=== PATIENT | female | born 1955 | race Caucasian/White ===

== ENCOUNTER 2018-04-27 16:18 | Emergency (ER) | payer OTHER ==
[~2018-04-27] VITALS: Ht 170.1 cm; Wt 64.9 kg
[~2018-04-27 16:18] MED LIST: ADVAIR 250/501 EA INH; ALPRAZOLAM0.5 M3 PO; ASPIRIN ADULT L81 M1 PO; ATORVASTATIN CA10 M1 PO; LIPITOR10 MG PO; LISINOPRIL10 M1 PO; NEURONTIN300 MG PO; OMEPRAZOLE D/R20 MG PO; PRAVACHOL20 MG PO; ZOLOFT100 MG PO
[2018-04-27] MEDS ORDERED: Peridex 473 ML473 ML PO (16:27)
[2018-04-27] MEDS ORDERED: ZOFRAN4 MG PO (16:27)
[2018-04-27] MEDS ORDERED: CLINDAMYCIN150 MG PO (16:27)
[2018-04-27] MEDS ORDERED: BREO ELLIPTA 11 EACH INH (16:38)
== END 2018-04-27 16:53 | disposition home or self-care (01) ==
LOC: ED 16:18
DX: R22.0 Localized swelling, mass and lump, head (principal); R09.02 Hypoxemia; I10 Essential (primary) hypertension; J44.9 Chronic obstructive pulmonary disease, unspecified; K21.9 Gastro-esophageal reflux disease without esophagitis; F17.200 Nicotine dependence, unspecified, uncomplicated; Z79.82 Long term (current) use of aspirin; Z79.899 Other long term (current) drug therapy

== ENCOUNTER 2019-05-21 12:04 | Inpatient (IN) | payer MEDICARE ==
[~2019-05-21] VITALS: Ht 165.1 cm; Wt 48.1 kg
--- NOTE | ~2019-05-21 | PR ---
[place], [place] PROGRESS NOTE NAME: SAMEERA MATTHEWS UNIT #: [id number] ROOM: 317 DOCTOR: SANDRA PATRICIO MD BIRTHDATE: [birth year] DOS: 05/27/2019 INTERVAL NOTE CHIEF COMPLAINT: "I at least got the obituary written." SUMMARY OF THE VISIT: The patient was interviewed as she was sitting finishing her breakfast. She voiced an improvement in her overall symptoms. DICTATION ENDS HERE SANDRA PATRICIO MD CM:PNTRANS [id number] SANDRA PATRICIO MD 05/27/19 1946 interface
--- NOTE | ~2019-05-21 | EKG ---
[place], [place] ELECTROCARDIOGRAM REPORT NAME: SAMEERA MATTHEWS UNIT #: [id number] ROOM: 310 DOCTOR: STEVE DRAFT REPORT BIRTHDATE: [birth year] [facility] Test Date: 2019-05-25 Test Time: 12:06:46 Pat Name: SAMEERA MATTHEWS Department: Room: 310 1 Gender: F Desktop Support Engineer: : [id number] Requested By: GRETA BROWN Order Number: [id number] Reading MD: Ryan Mcclellan MD Measurements Intervals [place] Rate: 101 P: 84 CO: 153 QRS: 51 QRSD: 65 T: 46 QT: 342 QTc: 444 Interpretive Statements Sinus tachycardia Probable left atrial enlargement Electronically Signed On 05-26-2019 5:45:40 PDT by Ryan Mcclellan MD CM:EKGRPT:ELECTROCARDIOGRAM REPORT [id number] GRETA BROWN EPIPHANY DRAFT REPORT GRETA BROWN
--- NOTE | ~2019-05-21 | PR ---
[place], [place] PROGRESS NOTE NAME: SAMEERA MATTHEWS UNIT #: [id number] ROOM: 310 DOCTOR: SANDRA PATRICIO MD BIRTHDATE: [birth year] DOS: 05/26/2019 CHIEF COMPLAINT: "Oh, I am having these anxiety attacks, but I have to push through and get this done." SUMMARY OF THE VISIT: The patient was interviewed as she was sitting at the edge of the dining area. She was working on riding and obituary for her . She was visibly upset as I approached her and reports that she is trying her best to deal with the grief and still having episodic panic attacks throughout the day. They come on oftentimes without warning and mimic a heart attack with chest pain, diaphoresis, shortness of breath and a sense of impending doom. On a positive note, she is at least sleeping with the current medication regimen and her appetite has remained good. MENTAL STATUS: She is alert and oriented. Mood does seem to be depressed, but improving. Affect is anxiety ridden and very anxious. There is no hypomania or mike. There is no gross psychosis. Memory is intact. PLAN: I will go ahead and start her on Ativan 0.5 mg t.i.d. in an effort to get ahead of the anxiety. I have instructed her to refuse medicine if she is feeling that is making her too somnolent. Otherwise, I have discussed with the treatment team ways to aid her in her activities, especially as she prepares the obituary for her and finalizes any last minute plans. Will engage in individual and louise milieu activity, returning to the least restrictive environment when psychiatrically stable. SANDRA PATRICIO MD CM:PNTRANS [phone] SANDRA PATRICIO MD 05/26/19 1055 interface
--- NOTE | ~2019-05-21 | DS ---
[place], [place] DISCHARGE SUMMARY NAME: [id number] UNIT #: [id number] ROOM: 317 DOCTOR: SANDRA PATRICIO MD BIRTHDATE: [birth year] DOS: 06/02/2019 CHIEF COMPLAINT: "I can't believe that he . I can't believe that it happened." HISTORY OF PRESENT ILLNESS: This is a 63-year-old white female who was just discharged from the [facility] following a short stay due to an attempted suicide. The patient has had increased stressors of late, her own failing health being one of them and her 's failing health. When the patient was discharged, she was discharged so that she can be at her side, who was in the active process of dying. He subsequently on the day of her discharge with her at his side. Following this, she had sustained a panic attack and was brought into the Emergency Room by family members and readmitted because of worsening depression and anxiety. SUMMARY OF HOSPITAL COURSE: The patient was admitted to the unit where she was initially maintained on Remeron and BuSpar. BuSpar was increased from 5 mg t.i.d. to 10 mg t.i.d. in an effort to decrease anxiety and improve respiratory drive. Ultimately, the Remeron was increased from 15 to 30 mg at bedtime. Additionally, she was given a prescription an order for Ativan 0.5 mg t.i.d. to deal with the overriding anxiety surrounding her 's . Much of the work on the unit focused on helping her cope with his and again plan of strategy for returning home to the house. Family members were working to make it so that she would not have to go up multiple levels and instead were working to make a bathroom on the main floor, so she would not have to go upstairs. Once all this was done, the patient voiced a willingness and a readiness to return home. She clearly voiced positive plans for the future and denied having any suicidal thoughts. She was discharged home at that time. MENTAL STATUS AT DISCHARGE: She is alert and oriented to person, place, and time. Mood is euthymic. Affect is appropriate. There is no mike, hypomania or psychosis. There are no suicidal thoughts, homicidal thoughts, or self-injurious thoughts. Short, intermediate, and long-term memory is intact. FINAL DIAGNOSES: Major depression, recurrent, severe, anxiety disorder, not otherwise specified. PLAN: Her prescriptions were e-scribed to [facility] except for Neurontin and Ativan, which were printed, signed and sent with her. She will have followup in the community. At the time of discharge, she was medically and psychiatrically stable. [place], [place] DISCHARGE SUMMARY NAME: SAMEERA MATTHEWS UNIT #: [id number] ROOM: 317 DOCTOR: SANDRA PATRICIO MD BIRTHDATE: [birth year] SANDRA PATRICIO MD CM:DISCHARG SANDRA PATRICIO MD 06/02/1936 interface
--- NOTE | ~2019-05-21 | PR ---
[place], [place] PROGRESS NOTE NAME: SAMEERA MATTHEWS UNIT #: [id number] ROOM: 310 DOCTOR: SANDRA PATRICIO MD BIRTHDATE: [birth year] DOS: 05/27/2019 CHIEF COMPLAINT: "I at least finished my 's obituary." SUMMARY OF THE VISIT: The patient was interviewed as she was finishing her breakfast at the end of the dining room. She engaged readily in conversation, reporting that she is done with her 's obituary and is feeling day by day a little better. We talked at length about her plans when she returns home and is planning to return back to her home that she and her share together. Family is making some arrangements to make it more easy for her to have access and working on installing a first floor bathroom. She voices that the panic attacks have lessened and that the Ativan during the day has made great improvement without sedation or somnolence. MENTAL STATUS: She is alert and oriented to person, place, and time. Mood is gradually trending towards euthymia. Affect is much more appropriate. There is no hypomania, mike or psychosis. There are no suicidal thoughts, homicidal thoughts, or self-injurious thoughts and memory is intact. PLAN: I will continue her current psychotropic regimen, continue to engage in individual and louise milieu activity, returning to the least restrictive environment when psychiatrically stable. SANDRA PATRICIO MD CM:PNTRANS [phone] SANDRA PATRICIO MD 05/27/19 1017 interface
--- NOTE | ~2019-05-21 | PR ---
[place], [place] PROGRESS NOTE NAME: SAMEERA MATTHEWS UNIT #: [id number] ROOM: 310 DOCTOR: CLAIRE FAY CNP BIRTHDATE: [birth year] DOS: 05/24/2019 CHIEF COMPLAINT: "I didn't have a good night." SUMMARY OF THE VISIT: The patient was interviewed as she lie in her bed with her eyes closed. She was sleeping whenever I entered the room; however, she did arouse whenever I called her name. The patient is somewhat lethargic this morning; however, staff reports that she did have an Ativan at 3:00 a.m., reports that the patient was medicated due to having waking up having a panic attack. Today is her and her 's anniversary. Her has recently . Staff did report that yesterday, the patient had been more interactive with staff and peers. Her appetite is fair. She slept sporadically throughout the night last night. The patient also found out that her bank account has been hacked, so this seems to be causing increased anxiety. MENTAL STATUS EXAMINATION: The patient is alert and oriented. She was pleasant and cooperative. No overt mike or hypomania noted. No delusions or paranoia noted. No psychotic symptoms noted. No auditory or visual hallucinations noted. The patient's mood is depressed. Her affect is congruent with mood. PLAN: We will increase the patient's Remeron to 30 mg at bedtime to help combat depressive symptoms. We will monitor the patient for effectiveness and monitor for side effects. Encourage the patient to engage in individual and louise milieu activity. Continue fall and safety precautions. Plan is to return the patient to the least restrictive environment when she is considered psychiatrically stable. Claire Fay CNP CM:PNTRANS 1 8 CLAIRE FAY CNP 05/24/19918 interface
--- NOTE | ~2019-05-21 | PR ---
[place], [place] PROGRESS NOTE NAME: SAMEERA MATTHEWS UNIT #: [id number] ROOM: 317 DOCTOR: SANDRA PATRICIO MD BIRTHDATE: [birth year] DOS: 06/01/2019 INVERVAL NOTE CHIEF COMPLAINT: "I am coming to private tutor with things day by day. "I think I am doing better, thank heavens for you people and my family." SUMMARY OF THE VISIT: The patient was interviewed as she was sitting at a table with another female peer. She stopped and engaged in conversation with me reporting that she did sleep better. She is eating well and overall is voicing positive plans for the future. She does feel that the antidepressants and the antianxiety medicines have been beneficial. She notes no residual side effects from them. MENTAL STATUS: She is alert and oriented. Mood does seem to be more euthymic. Affect is more appropriate. There is no mike, hypomania or psychosis. Short term, intermediate, and long-term memory are intact. PLAN: I will renew her straight Ativan 0.5 mg t.i.d. Continue to engage in individual and louise milieu activity, returning to the least restrictive environment when psychiatrically stable. SANDRA PATRICIO MD CM:PNTRANS 8 [phone] SANDRA PATRICIO MD 06/01/192223 interface
--- NOTE | ~2019-05-21 | PR ---
[place], [place] PROGRESS NOTE NAME: SAMEERA MATTHEWS UNIT #: [id number] ROOM: 317 DOCTOR: SANDRA PATRICIO MD BIRTHDATE: [birth year] DOS: 05/31/2019 CHIEF COMPLAINT: "I read my 's obituary. I could have gone on and on. He was the love of my life." SUMMARY OF THE VISIT: The patient was interviewed as she was sitting in the end of the dining area. She engaged readily in conversation. Tears weld up in her eyes as she talked about her 's obituary. She continues to grieve. She notes sleep was somewhat disturbed last night, but overall she notes an improvement. MENTAL STATUS: She is alert and oriented. Mood does seem to be still depressed, still anxious, overtones. No mike, hypomania or gross psychosis is noted. She denies side effects from the medicines themselves. PLAN: Continue to support and monitor. Continue to engage in individual and louise milieu activity. Returning to the least restrictive environment when psychiatrically stable. SANDRA PATRICIO MD CM:PNTRANS 8 [phone] SANDRA PATRICIO MD 05/31/192036 interface
--- NOTE | ~2019-05-21 | PR ---
[place], [place] PROGRESS NOTE NAME: SAMEERA MATTHEWS UNIT #: [id number] ROOM: 310 DOCTOR: VERONIKA DAMON DO BIRTHDATE: [birth year] DOS: 05/23/2019 PSYCHIATRIC PROGRESS NOTE CHIEF COMPLAINT: "Good morning, still some panic attacks throughout the night." SUMMARY OF VISIT: The patient is interviewed while sitting in the dining olivia eating breakfast. She admits that she still continues to have some panic attacks that are usually situational in the night. She then becomes tearful during the interview when she mentioned that she found out that her , Jg, who recently, his body was still at the hospital. She states that she had no idea that he was not at the home yet. When she found that out, she said it bothered her a lot and at that time she needed Ativan medication and additional emotional support from staff. She states she eventually was able to calm down. She mentioned that she does not want to live at her house anymore because her had built it and it has been too sad for her to go back into it, also very large for her to maintain. She would prefer a small place for herself and her plants. In addition, she states that tomorrow is her and her 's anniversary and so she knows it will be extremely hard for her that day and she wanted us to be aware that she can have hard time wanting to come out of bed and not have a blanket over her head while processing that it is her anniversary. Per nursing staff, the patient slept about 6 hours last night. She is tearful throughout the day; however, she is calm and appropriate with staff members. MENTAL STATUS EXAMINATION: She is alert and oriented x 3. Mood is still very depressed with some anxious overtones. She is tearful. There is no hypomania or mike. There are no auditory or visual hallucinations. No delusions are present. No paranoia. Memory for the most part is intact. PLAN: Increase BuSpar 10 mg t.i.d. Made staff aware that Sunday will be her anniversary and that she will have a hard time processing this: We will continue to monitor and support, engage in individual and louise milieu activity, returning to the least restrictive environment when psychiatrically stable. Veronika Damon DO [place], [place] PROGRESS NOTE NAME: SAMEERA MATTHEWS UNIT #: [id number] ROOM: 310 DOCTOR: VERONIKA DAMON DO BIRTHDATE: [birth year] SANDRA PATRICIO MD CM:PNPALMER [phone] VERONIKA DAMON DO 05/24/19 0125 interface
--- NOTE | ~2019-05-21 | WRIGHTHP ---
[place], [place] PATIENT HISTORY AND PHYSICAL EXAM NAME: SAMEERA MATTHEWS UNIT #: [id number] ROOM: 310 DOCTOR: SANDRA PATRICIO MD BIRTHDATE: [birth year] DOS: 05/22/2019 CHIEF COMPLAINT: "I can't believe that he . I can't believe that happened." HISTORY OF PRESENT ILLNESS: This is a 63-year-old white female who was just discharged from the [facility] following a short stay due to an attempted suicide. The patient has had increased stressors of late her own failing medical health as well as her 's failing health. The patient was discharged so that she could attend to him while she was at [facility] and he subsequently passed within 24 hours of her being discharged. She felt overwhelmed, was crying hysterically and sustained a significant panic attacks, necessitating a trip to the Emergency Room and the subsequent readmission. The patient endorses multiple neurovegetative symptoms including poor sleep and appetite, crying spells, and inability to cope. She wishes she were , but states that she does not have active suicidal thoughts, but this could change at any time. The patient is readmitted now for crisis stabilization, to engage in individual and louise milieu activity and to re-stabilize on medication. PAST MEDICAL HISTORY: Remarkable for acute on chronic respiratory failure, COPD, hypertension, gastritis, GERD, SIRS, nicotine dependence and alcohol abuse. SOCIAL HISTORY: Remarkable for both alcohol use and tobacco use. No illicit drugs, but the patient has a lengthy history of benzodiazepine use. ALLERGIES: SHE DOES LIST, ALLERGIES TO ACETAMINOPHEN AND OXYCODONE. STRENGTHS: Good verbal skills, ambulatory. WEAKNESSES: Chronic mental health issues, poor coping skills. MENTAL STATUS: Upon admission, the patient is alert and oriented. Mood is overwhelmingly depressed and she cried readily during the entire interview, the patient endorses multiple neurovegetative symptoms including poor sleep and appetite, anhedonia, hopeless, helpless feelings, crying spells, and inability to cope. She also endorses significant overriding anxiety with episodic panic attacks. There is no hypomania or mike. There are no auditory or visual hallucinations. No delusions are present. No paranoia is present. Memory is intact. DIAGNOSES: Major depression, recurrent, severe panic disorder, generalized anxiety disorder. PLAN: I have maintained her on Remeron 15 mg at bedtime. I will increase her BuSpar from 5 mg t.i.d. to 10 mg b.i.d. She will have p.r.n. Ativan available should she require it, but nothing straight. We will engage in individual and louise milieu activity. We will also consult pastoral services to offer spiritual assistance. We will return to the least restrictive environment when psychiatrically stable. [place], [place] PATIENT HISTORY AND PHYSICAL EXAM NAME: SAMEERA MATTHEWS UNIT #: [id number] ROOM: 310 DOCTOR: SANDRA PATRICIO MD BIRTHDATE: [birth year] SANDRA PATRICIO MD CM:HISPHYS:PATIENT HISTORY AND PHYSICAL EXAMINATION 7 7 SANDRA PATRICIO MD 05/22/19917 interface
--- NOTE | ~2019-05-21 | PR ---
[place], [place] PROGRESS NOTE NAME: SAMEERA MATTHEWS UNIT #: [id number] ROOM: 317 DOCTOR: SANDRA PATRICIO MD BIRTHDATE: [birth year] DOS: 05/29/2019 CHIEF COMPLAINT: "Oh, I don't think I'll be ready for discharge, Sunday. I am just so overwhelmed." SUMMARY OF THE VISIT: The patient was interviewed as she was sitting at the end of the dining area with oxygen on, eating her breakfast. She engaged readily in conversation. She did report to me that after thinking about it, she feels like she would frey herself if she left tomorrow, feeling that there was way too many lose ends that need to be tied up and she is overwhelmed, anxious and depressed by it. In general, her sleep has improved, but it is still disturbed. She is tolerating the current medication regimen well without noticeable side effects. MENTAL STATUS: She is alert and oriented to person, place and time. Mood does still seem to be depressed with anxious overtones. There is no hypomania, mike or psychosis. Short term, intermediate, and long-term memory are intact. PLAN: I will renew her BuSpar, maintain her current psychotropic regimen, engage in individual and louise milieu activity, returning to the least restrictive environment when psychiatrically stable. SANDRA PATRICIO MD CM:PNTRANS [phone] SANDRA PATRICIO MD 05/29/19 1024 interface
[~2019-05-21 12:04] MED LIST changes: +BREO ELLIPTA 11 EACH INH; +BUSPAR5 MG PO; +CIPROFLOXACIN500 M4 PO; +CLINDAMYCIN150 MG PO; +DALI500T PO; +Ipratropium Brom3 ML INH; +NORVASC5 MG PO; +PROAIR HFA8.5 GM INH; +Peridex 473 ML473 ML PO; +REMERON15 M2 PO; +TEARS NATURALE,15 ML OPH; +TRAMADOL HCL50 MG PO; +VITAMIN D5000 UNI1 PO; +ZOFRAN4 MG PO
--- NOTE | 2019-05-21 13:33 | NUR ---
SAMEERA MATTHEWS a 63 year old F admitted via wheel chair from the EMERGENCY ROOM as a voluntary admission. Arrived on unit at 1333 . ALLERGIES: OXYCODONE, ACETAMINOPHEN Vital signs are: 97.5-101-18 172/70. The client signed the following forms with stated understanding: Authorization For The Release of Medical Information, Clothing List, Consent to Voluntary Admission and Hospitalization, Consent and Release Forms/Receipt of Rights, Acknowledgement of Advance Directive Information, Behavioral Health Consent Form, and Informed Consent of Medications. Admitted under the services of Dr. SHENG GREENWOOD,[facility]. A search was conducted and hazardous articles were removed. Client was oriented to the unit. SUPA DEMARCO PT ALERT TO PERSON, PLACE AND TIME. PT REPORTS HER EARLY THIS MORNING AND SHE IS FEELNG ANXIOUS AND DEPRESSED. PT DENIES ANY SUICIDAL THOUGHTS. SUICIDE RISK SCORE IS 16, DR PATRICIO NOTIFIED AND ORDERS RECEIVED TO CONTINUE Q15 MIN SAFETY CHECKS. NO HALLUCINATIONS OR DELUSIONS NOTED. PT AMBULATORY WITH 1 STAFF ASSIST. PT CONTINENT OF BOWEL AND BLADDE.R
--- NOTE | 2019-05-21 14:00 | NUR ---
CALL PLACED TO RESIDENT #[address] ON NEW PT. NEW ORDER TO PLACE CONSULT UNDER DR CHARLES. UPDATE DDR ON VS AND RECEIVED A NEW ORDER TO GIVE NORVASC 5MG NOW DUE TO INCREASED BP. PT STATED SHE HASNT TAKEN ANY MEDICATIONS SINCE DISCHARGE. WILL CONTINUE TO MONITOR VS.
[2019-05-21 14:08] VITALS: BP 172/70
[2019-05-21 14:09] VITALS: BP 172/70
--- NOTE | 2019-05-21 14:58 | NUR ---
Please refer to psychosocial assessment from pt's [facility] admission dated 05/17/19. Pt discharged on 05/20/19 to be at her 's side who was gravely ill at [facility]. Pt's did early this AM. When meeting with pt in ER prior to pt's return to [facility], pt stated that she went to stay at her aunt's home after leaving [facility]. Pt stated that when she woke up later this AM at her aunt's, pt had a panic attack and was having difficulty breathing. She decided that she needed to return to [facility] for further treatment. Pt was tearful throughout conversation with this inspector automatic typewriter.
--- NOTE | 2019-05-21 15:34 | NUR ---
PM GROUP/LEISURE INTERESTS PT ATTENDED AND PARTICIPATED IN AFTERNOON GROUP THERAPY BY READING THE NEWSPAPER AND SOCIALIZING WITH PEERS. PT HAD JUST BEEN READMITTED TO THE UNIT AND GOALS WILL BE ESTABLISHED IN THE AM
--- NOTE | 2019-05-21 15:36 | NUR ---
[facility] DOCTOR ON UNIT TO ASSESS PT.
--- NOTE | 2019-05-21 16:38 | NUR ---
SPOKE WITH SYLVIA ALVAREZ, ADVISED THAT PT IS REQUESTING BREATHING TX.
[2019-05-21 19:49] VITALS: BP 136/75
--- NOTE | 2019-05-22 02:46 | NUR ---
P-DEPRESSED MOOD. I-ASSESS ORIENTATION, MOOD, AND BEHAVIOR. ASSESS FOR SI/HI AND HALLUCINATIONS. PROVIDE 1:1 WITH EMOTIONAL SUPPORT NEEDED. ENCOURAGE MEDICATION COMPLIANCE AND EDUCATE. MONITOR SLEEP. R-PATIENT ALERT AND ORIENTED X4, MOOD DEPRESSED. PT CALM, INTERACTIVE, AND COOPERATIVE. PT STATED DURING 1:1 THAT SHE CONTINUES TO FEEL SAD BUT DENIES ANY SI OR HI, PATIENT PROVIDED WITH EMOTIONAL SUPPORT AND INFORMED THAT IF THOUGHTS ARISE TO HARM SELF OR OTHERS TO NOTIFY STAFF, PT CONTRACTED FOR SAFETY. NO HALLUCINATIONS, PARANOIA, OR DELUSIONS NOTED. NO PHYSICAL COMPLAINTS VOICED. PATIENT MEDICATION COMPLIANT WITHOUT DIFFICULTY AFTER REVIEW. PT CURRENTLY LAYING DOWN WITH EYES CLOSED, RESPIRATIONS EASY AND REGULAR ON 3L NC ORDERED, NO SIGNS OR SYMPTOMS OF DISTRESS NOTED. P-CONTINUE TO MONITOR MOOD AND BEHAVIORS. PROVIDE 1:1 FOR VENTILATION OF FEELINGS WITH EMOTIONAL SUPPORT NEEDED. ENCOURAGE MEDICATION COMPLIANCE AND EDUCATE. MAINTAIN Q 15 MIN CHECKS.
--- NOTE | 2019-05-22 05:46 | NUR ---
24 HOUR CHART CHECK COMPLETED.
--- NOTE | 2019-05-22 05:54 | NUR ---
PATIENT OBSERVED ON Q 15 MIN CHECKS TO HAVE SLEPT APPROX 6 HOURS WITH X1 BRIEF AWAKENING TO USE THE RESTROOM WITH ASSISTANCE OF STAFF, NO SIGNS OR SYMPTOMS OF DISTRESS NOTED.
[2019-05-22 07:19] LABS: ALBUMIN 3.1 gm/dl (3.1-4.5); BUN 10 mg/dl (7-24); CHLORIDE 97 mmol/L (98-107); CHOLESTEROL 151 mg/dL (<200); CREATININE 0.54 mg/dL (0.55-1.02); POTASSIUM 3.6 mmol/L (3.5-5.1); SGOT/AST 12 IU/L (3-35); SGPT/ALT 19 U/L (12-78); SODIUM 136 mmol/L (136-145); TRIGLYCERIDES 58 mg/dl (<150); VLDL CHOLESTEROL 12 mg/dL (6-40)
[2019-05-22 07:29] LABS: ALKALINE PHOSPHATASE 72 U/L (45-117); HDL CHOLESTEROL 56 mg/dl (40-60); LDL CHOLESTEROL 83 mg/dL (9-159); THYROID STIM HORMONE (HS) 0.504 uIU/ml (0.358-4.75); TOTAL PROTEIN 6.5 gm/dL (6.4-8.2)
[2019-05-22 07:53] LABS: VITAMIN D, 25-HYDROXY 19.8 ng/mL (30-100)
[2019-05-22 08:00] VITALS: BP 167/80
--- NOTE | 2019-05-22 08:15 | NUR ---
Treatment Plan meeting with Dr. Leone, RN, AT, SW and Business Support Professional. Plan for discharge next week. Pt. will return Home at this point.
--- NOTE | 2019-05-22 08:36 | NUR ---
Patient resting quietly with no c/o discomfort. Respirations easy and regular. Vital signs stable. No overt distress. SHERIF OROZCO
--- NOTE | 2019-05-22 11:41 | NUR ---
AM GROUP/LESSONS FROM A TREE PT WAS LATE TO GROUP BUT DID PARTICIPATE IN DISCUSSION AND BEGAN WORKING ON A TREE. PT EXPRESSED NO SUICIDAL IDEATIONS WHILE IN GROUP
--- NOTE | 2019-05-22 14:33 | NUR ---
DR. PERKINS MADE AWARE THAT PT STATES SHE DOES NOT HAVE ACETAMINOPHEN ALLERGY, PT STATES SHE TOOK PERCOCET IN THE PAST AND HAS HAD AN ADVERSE REACTION TO PERCOCET. PT REQUESTING TYLENOL FOR HEADACHE. DR. PERKINS STATES TO PLACE ORDER FOR ACETAMINOPHEN 650MG PO Q6H PRN FOR PAIN.
--- NOTE | 2019-05-22 14:36 | NUR ---
PT REQUESTING MEDICATION TO DECREASE ANXIETY. PT IN MEETING WITH BOX TURNER. BOX TURNER MADE THIS NURSE AWARE THAT PT IS VERY UPSET, TEARFUL. PRN ATIVAN 1MG GIVE AT THIS TIME AT PT REQUEST D/T ALL NONPHARMACOLOGICAL RELAXATION TECHNIQUES INEFFECTIVE.
--- NOTE | 2019-05-22 15:36 | NUR ---
PM GROUP/TREES CONTINUED PT WAS LATE TO GROUP SHE WAS IN A MEETING WITH SW. PT HAD ABOUT A HALF HOUR AND CONTINUED WORK ON HER TREE DRAWING. PT EXPRESSED NO SUICIDAL IDEATIONS DURING GROUP
--- NOTE | 2019-05-22 16:12 | NUR ---
PT STATES ANXIETY AND HEADACHE HAVE DECREASED VERY MUCH. PT REMAINS EPISODICALLY TEARFUL. DENIES SI/HI. PT IN DINING AREA WITH PEERS COLORING, INTERACTING APPROPRIATELY, LAUGHING AT TIMES. WILL CONTINUE TO MONITOR PT AND PROVIDE EMOTIONAL SUPPORT NEEDED.
--- NOTE | 2019-05-22 16:15 | NUR ---
Individual time spent with pt this afternoon. Allowed pt to express her grief and provided support. Assisted pt in making call to [facility]. Pt spoke to Sandeep Costello and discussed plans for pt's . Support provided to pt during this phone conversation. Problem solved with pt about payment of her current bills. The plan is for her cousin Nico to bring pt's bills to [facility]. This lyric writer will then allow pt to use the phone in this lyric writer's office to make payments.
[2019-05-22 20:19] VITALS: BP 115/65
--- NOTE | 2019-05-23 01:54 | NUR ---
P-DEPRESSED MOOD. I-ASSESS ORIENTATION, MOOD, AND BEHAVIOR. ASSESS FOR SI/HI AND HALLUCINATIONS. PROVIDE 1:1 WITH EMOTIONAL SUPPORT NEEDED. ENCOURAGE MEDICATION COMPLIANCE AND EDUCATE. MONITOR SLEEP. R-PATIENT ALERT AND ORIENTED X4, MOOD DEPRESSED. PT CALM, INTERACTIVE, AND COOPERATIVE. DURING 1:1 PT DENIED ANY SI OR HI AND CONTRACTED FOR SAFETY. PT ALSO DENIED ANY HALLUCINATIONS, NO NOTED RESPONDING TO INTERNAL STIMULI. NO PARANOIA OR DELUSIONS NOTED. NO PHYSICAL COMPLAINTS VOICED. PATIENT MEDICATION COMPLIANT WITHOUT DIFFICULTY AFTER REVIEW. PT CURRENTLY LAYING DOWN WITH EYES CLOSED, RESPIRATIONS EASY AND REGULAR ON 3L NC ORDERED, NO SIGNS OR SYMPTOMS OF DISTRESS NOTED. P-CONTINUE TO MONITOR MOOD AND BEHAVIORS. PROVIDE 1:1 FOR VENTILATION OF FEELINGS WITH EMOTIONAL SUPPORT NEEDED. ENCOURAGE MEDICATION COMPLIANCE AND EDUCATE. MAINTAIN Q 15 MIN CHECKS.
--- NOTE | 2019-05-23 04:46 | NUR ---
24 HOUR CHART CHECK COMPLETED.
--- NOTE | 2019-05-23 06:10 | NUR ---
PATIENT OBSERVED ON Q 15 MIN CHECKS TO HAVE SLEPT APPROX 6 HOURS WITH NO AWAKENINGS OR SIGNS AND SYMPTOMS OF DISTRESS NOTED.
[2019-05-23 07:41] VITALS: BP 140/62
--- NOTE | 2019-05-23 08:00 | NUR ---
Patient resting quietly with no c/o discomfort. Respirations easy and regular. Vital signs stable. No overt distress. SHERIF OROZCO
--- NOTE | 2019-05-23 08:00 | NUR ---
Treatment Plan meeting with Dr. Leone, RN, AT, SW and Veterinary Microbiologist. Plan for discharge next week. Working with patient on discharge Planning.
--- NOTE | 2019-05-23 09:19 | NUR ---
Received a call from pt's brother Que. Que voiced concerns about pt returning home alone. Que provided reasons for his concerns. Explained to Que that this typewriter aligner has not yet discussed discharge plan with pt, as yesterday was spent in planning memorial for pt's and allowing pt to express grief. Reassured Que that discharge options will be discussed with pt.
--- NOTE | 2019-05-23 09:35 | NUR ---
PT C/O VERY BAD "NERVES" THIS AM. STATES IT IS ONLY GOING TO GET WORSE THE DAY PROGRESSES BECAUSE HER WEDDING ANNIVERSARY IS TOMORROW. PT IS REQUESTING MEDICATION FOR ANXIOUSNESS. PT STATES THAT COLORING, 1:1, AND SOME LOW STIMULATION HAS NOT HELPED, SHE STATES "I JUST NEED SOMETHING TO HELP ME CALM DOWN AND FOCUS". ATIVAN 1MG PO GIVEN AT THIS TIME PER PRN ORDER
--- NOTE | 2019-05-23 10:45 | NUR ---
PT INTERACTING WITH PEERS AT THIS TIME, STATES "I FEEL MUCH BETTER". PT HAS NO FURTHER TEARFUL EPISODES, PRN APPEARS EFFECTIVE AT THIS TIME
--- NOTE | 2019-05-23 11:47 | NUR ---
PHYSICAL THERAPY Physical therapy screen complete, U. Patient reports no need for skilled PT services at this time. Discharge PT order. Thank you. Coleen Renee,PT,DPT.
--- NOTE | 2019-05-23 11:48 | NUR ---
AM GROUP PT ATTENDED AND PARTICIPATED IN MORNING GROUP THERAPY BY SOCIALIZING AND WORKING WITH COLORED PENCILS. PT EXPRESSED NO SUICIDAL IDEATIONS DURING GROUP. PT HAD ONE TEARFUL EPISODE WHEN REMINISCING ABOUT HER .
--- NOTE | 2019-05-23 12:29 | NUR ---
Occupational therapy orders received and chart review this date, 05/23/19. Patient educated on occcupational therapy, and patiet stated she does not need therapy. She said she is continuing to get stronger, and does not need therapy services. Patient to be discharged at this time from OT services. Thank you for the referral. Tamra Sheikh, OTR/L
--- NOTE | 2019-05-23 14:13 | NUR ---
Pt's cousin brought pt's bills needing paid to pt today. Brought pt to this remote mortgage underwriter's office so that pt could pay her bills by phone.
--- NOTE | 2019-05-23 15:38 | NUR ---
PM GROUP/MANICURES AND MUSIC PT WAS UNABLE TO ATTEND AFTERNOON GROUP THERAPY DUE TO A MEETING WITH BINTA
[2019-05-23 20:14] VITALS: BP 125/85
--- NOTE | 2019-05-24 | NUR ---
PT REQUESTED BREATHING TREATMENT AT THIS TIME. AUDIBLE WHEEZES NOTED, PT CALM WITH SOB NOTED. RESPIRATORY CALLED AT THIS TIME
--- NOTE | 2019-05-24 00:12 | NUR ---
P:DEPRESSION, ANXIETY, SOB FROM COPD, INEFFECTIVE COPING I: ENCOURAGED 1:1 CONVERSATION, TALKED WITH PT ABOUT SUPPORT NETWORKS AND IMPORTANCE OF SOCIALIZING AT HERE AND HOME UPON DISCHARGE. ENCOURAGE MEDICATION EDUCATION, SPOKE WITH PT ABOUT BREATHING TECHNIQUES DUE TO ANXIETY AND COPD R: PT RECEPTIVE, TALKED ABOUT HOW LIFE CHANGES AND HOW SHE ENJOYS GARDENING, OUTSIDE, SPOKE OF MEMORIES OF LATE WITH PICINICS, LAKES, WALKS AROUND DOMINIQUE, PT APPEARED CALM WITH NO ANXIETY NOTED AT THE TIME OF CONVERSATION. STATED SHE HAS DECREASED IN BREATHING AEROSOLS. PT LAUGHINGWITH ROOM MATE STATES SHE IS 1 OF THE 3 MUSKETEERS WITH OTHER PEERS. P: CONTINUE TO HELP WITH COPING SKILLS, ENCOURAGE INTERACTIONS, MEDICATION EDUCATION, CONTINUE WITH 15 MIN CHECKS AND CONTRACT FOR SAFETY
--- NOTE | 2019-05-24 02:50 | NUR ---
PT NOTED TO BE SOBBING IN HER ROOM, MILIEU ALERTED NURSE THAT PT REQUESTED ATIVAN FOR ANXIETY DUE AT UPSET ABOUT HUSBANDS PASSING AND IT IS THEIR ANNIVERSARY
--- NOTE | 2019-05-24 03:00 | NUR ---
1:1 WITH PT WITH THIS NURSE AND SPN, PT WEEPING WITH CONGESTION, RHONCHI NOTED WITH INHALATIONS. CALMED SOME WITH THERAPEUTIC INTERVENTIONS ATIVAN ADMINISTERED AT THIS TIME. PT TALKED WITH STAFF STATING SHE COULDN'T BREATH WELL, REPOSITIONED AND ENCOURAGED PT TO DO CONTROLLED SLOW BREATHING. PT MAINTAINED ON 3L AT THIS TIME.
--- NOTE | 2019-05-24 03:05 | NUR ---
DR NAJERA NOTIFIED OF PT BREATHING AND UPDATED ON ANXIETY NEW ORDERS FOR ADDITIONAL BREATHING TREATMENTS AT THIS TIME. RESPIRATORY NOTIFIED
--- NOTE | 2019-05-24 03:32 | NUR ---
PT RESTING WITH EYES CLOSED AT THIS TIME. ATIVAN APEARS TO BE EFFECTIVE.
--- NOTE | 2019-05-24 05:17 | NUR ---
24 HR chart check completed.
--- NOTE | 2019-05-24 05:22 | NUR ---
PT SLEPT, 5.5 HOURS
[2019-05-24 07:33] VITALS: BP 113/69
[2019-05-24 07:41] VITALS: BP 113/69
--- NOTE | 2019-05-24 11:50 | NUR ---
AM/EXERCISES/AROMATHERAPY/BINGO PT ATTENDED AND PARTICIPATED IN ALL GROUP ACTIVITIES. PT REQUEST THAT ANY MUSIC PLAYED "IS NOT ANYTHING TOO SAD" PT DID BECOME TEARFUL DURING GROUP WHEN RECOGNIZING NUMBERS THAT CORRELATED WITH RELATIONSHIP WITH LATE ON HER BINGO CARD. PT DID NOT EXPRESS ANY S.I. AND WILL PALN TO ATTEND AND PARTICIPATE DURING AFTERNOON GROUP.
--- NOTE | 2019-05-24 14:09 | NUR ---
P-DEPRESSED MOOD. PATIENT ALERT AND ORIENTED. PATIENT WITH NO SHORT TERM AND HALF-WAY MEMORY DEFICITS NOTED. PATIENT WITH NO RESPIRATORY DISTRESS. PATIENT CONTINUES ON O2 AT 3L VIA NASAL CANNULA. PATIENT WITH NO HALLUCINATIONS OR DELUSIONS. PATIENT DENIES SUICIDAL OR HOMICIDAL IDEATIONS. I-REDIRECTION WITH 1:1 THERAPEUTIC INTERVENTIONS. EDUCATE AND ENCOURAGE MEDICATION COMPLIANCE R-PATIENT TEARFUL AT TIMES THIS SHIFT. PATIENT INTERACTIVE IN GROUP THERAPY. PATIENT ALSO ISOLATIVE AT TIMES THROUGHOUT SHIFT. PATIENT AMBULATING ON UNIT WITH STEADY GAIT. PATIENT CONTINENT AT TIMES. PATIENT TALKING TO NURSING STAFF THROUGHOUT SHIFT ABOUT HER WHO HAS RECENTLY . PATIENT TEARFUL WHEN TALKING ABOUT . PATIENT MEDICATION COMPLIANT P-CONTINUE TO ENCOURAGE MEDICATION COMPLIANCE, ENCOURAGE GROUP THERAPY WHILE AWAKE
--- NOTE | 2019-05-24 14:34 | NUR ---
Shift chart check completed.
--- NOTE | 2019-05-24 15:55 | NUR ---
PM/DISCUSSION/HUMOR PT ATTENDED AND PARTICIPATED IN DISCUSSION. PT OPEN WITH GROUP WITH NO ANXIETY OR S.I. EXPRESSED. PT WILL CONTINUE TO ATTEND AND PARTICIPATE IN FUTURE GROUP SESSIONS.
--- NOTE | 2019-05-24 15:56 | NUR ---
DR AQUINO ON UNIT TO SEE PATIENT
[2019-05-24 20:00] VITALS: BP 132/70
--- NOTE | 2019-05-24 22:01 | NUR ---
P--DEPRESSION AND SADNESS I--EMOTIONAL SUPPORT. LISTENED DURING 1:1 ABOUT HER . REVIEWED MEDICATION PROVIDED. CLIENT ORIENTED X'S3 AT THIS TIME. PLEASENT WITH PEERS AND STAFF. READY FOR BED R- OH THIS WOULD HAVE BEEN MY ANNIVERSARY, MY PAST ON THE . TOOK ALL MEDICATIONS. I HOPE I CAN SLEEP TONIGHT, IF NOT I WILL LET YOU KNOW AND IF I CAN'T I WILL WANT AN ATIVAN P--MONITOR FOR CHANGES IN BEHAVIOR AND MOOD. BE AVAILABLE FOR ANY NEEDS OF CLIENT.
--- NOTE | 2019-05-24 23:53 | NUR ---
RESP CALLED AT CLIENTS REQUEST FOR TREATMENT
--- NOTE | 2019-05-25 00:13 | NUR ---
RESP TREATMENT COMPLETED
--- NOTE | 2019-05-25 00:17 | NUR ---
24 HR chart check completed.
--- NOTE | 2019-05-25 04:52 | NUR ---
SHOWER COMPLETED. CLIENT FEELS IT WILL HELP HER RELAX. OXYGEN WORN DURING SHOWER
--- NOTE | 2019-05-25 06:27 | NUR ---
SLEPT FAIR. APPROX 5 HOURS
[2019-05-25 07:02] VITALS: BP 130/74
--- NOTE | 2019-05-25 07:41 | NUR ---
PT AWAKE, ALERT AND VERBAL. RESPS EASY AND EVEN ON 3L VIA NC. EATING BREAKFAST IN DINING ROOM WITH PEERS AT THIS TIME. NO DISTRESS NOTED.
--- NOTE | 2019-05-25 08:29 | NUR ---
YIN HEARING AID CONSULTANT ON UNIT TO SEE PT AT THIS TIME. UPDATE GIVEN.
--- NOTE | 2019-05-25 11:35 | NUR ---
MENTAL HEALTH WORKER ALERTED THIS RN PT C/O "LOUD THUMPING IN HER EARS" AND ASKED STAFF TO CHECK HER BLOOD PRESSURE. PT HAD CALMLY AMBULATED TO DINING ROOM UNASSISTED. UPON MANUAL BLOOD PRESSURE ASSESSMENT MENTAL HEALTH WORKER REPORTED TO THIS RN BP WAS 210/110. THIS RN REASSESSED, MANUAL BP 192/110. HR 108 RADIALLY. POX 96% ON 3L VIA NC. PT ALSO REPORTED THAT HER "ARM HAD GONE NUMB" AND SHE HAD "SOME PAIN IN HER JAW" BUT THAT THESE SYMPTOMS HAD RESOLVED. PT DENIES MIDSTERNAL CHEST PAIN. PT REPORTS NAUSEA AT THIS TIME. PT AWAKE, ALERT, RESPONSIVE. RESPS EASY AND EVEN ON 3L VIA NC PER PT BASELINE. PT TEARFUL BUT NO ACUTE DISTRESS NOTED. 2ND RN WITH PT AT THIS TIME WHILE THIS RN PHONES PHYSICIAN TO UPDATE OF THE ABOVE. THIS RN PHONED PHYSICIAN BP WAS ASSESSED ON OPPOSITE ARM WITH RESULT 168/108. ATTEMPTED TO REACH RESIDENT PHYSICIAN FOR X2 WITHOUT SUCCESS. CALL PLACED TO HOSPITALIST CELL NUMBER 2, SPOKE TO , MADE AWARE OF ALL OF THE ABOVE. STATES HE WILL NOTIFY HOSPITALIST #2 TEAM.
--- NOTE | 2019-05-25 11:40 | NUR ---
PHONED UNIT. UPDATE GIVEN. STATES SHE WILL ENTER ORDERS FOR STAT EKG AND STAT LABS. MADE AWARE PT AT THIS TIME STATES THUMPING IN EARS HAS DECREASED BUT IS STILL THERE. CONTINUES TO DENY CHEST PAIN. STATES JAW PAIN AND NUMBNESS IN ARM HAVE RESOLVED. PT CONTINUES TO C/O NAUSEA. STATES SHE WILL NOTIFY .
--- NOTE | 2019-05-25 11:54 | NUR ---
LAB ON UNIT AT THIS TIME FOR LAB DRAW. UPDATED EKG ORDER PLACED ROUTINE. EKG ORDER UPDATED TO STAT PER .
[2019-05-25 12:01] LABS: BASO % 0.2 % (0.0-1.0); EOS # 0.2 10*3/uL (0.0-0.4); EOS % 2.7 % (1.0-4.0); HEMATOCRIT 37.3 % (37.0-47.0); HEMOGLOBIN 12.2 g/dl (12.0-16.0); LYMPH # 0.9 10*3/uL (1.3-4.4); MEAN CELL VOLUME 90.8 fl (81.0-99.0); MEAN CORPUSCULAR HGB 29.7 pg (27.0-31.0); MEAN CORPUSCULAR HGB CONC 32.7 g/dl (33.0-37.0); MEAN PLATELET VOLUME 8.8 fl (9.6-12.3); MONO # 0.4 10*3/uL (0.1-1.0); MONO % 7.2 % (3.0-9.0); NEUT # 4.3 10*3/uL (2.3-7.9); NEUT % 73.7 % (47.0-73.0); PLATELET COUNT AUTOMATED 295 10*3/uL (130-400); RED BLOOD COUNT 4.11 10*6/uL (4.10-5.10); RED CELL DISTRI WIDTH 12.6 % (0-14.5); WHITE BLOOD COUNT 5.8 10*3/uL (4.8-10.8)
--- NOTE | 2019-05-25 12:12 | NUR ---
1159 AND ON UNIT AT THIS TIME. ASSESSED PT. EKG COMPLETED WHILE PHYSICIANS ON UNIT AND REVIEWED. BLOOD PRESSURE REASSESSED MANUALLY BY THIS RN WITH RESULT 160/92. AWARE. STATES HE WILL REVIEW LABS THEY COME IN BEFORE PLACING ANY FURTHER ORDERS IF NEEDED. PT CALM AND IN STABLE CONDITION AT THIS TIME. AMBULATED BACK TO DINING ROOM WITH STAFF ASSIST. NO ACUTE DISTRESS NOTED.
[2019-05-25 12:13] LABS: BUN 7 mg/dl (7-24); CHLORIDE 98 mmol/L (98-107); POTASSIUM 4.1 mmol/L (3.5-5.1); SODIUM 136 mmol/L (136-145)
--- NOTE | 2019-05-25 13:06 | NUR ---
P- DEPRESSED MOOD. PT REPORTS ANXIETY REGARDING THE NEED TO HANDLE 'S AFFAIRS RECENTLY . TEARFUL AT TIMES. I- ORIENTATION, MOOD AND BEHAVIOR ASSESSED. ASSESSED PT FOR SI/HI, INTENT OR PLAN. ASSESSED PT FOR S/S HALLUCINATIONS, PARANOIA AND/OR DELUSIONS. MEDICATIONS ADMINISTERED PER PHYSICIAN'S ORDERS. 1:1 AND EMOTIONAL SUPPORT PROVIDED. ENCOURAGED PT TO ATTEND AND PARTICIPATE IN [facility] GROUPS AND ACTIVITIES. R- PT IS ALERT AND ORIENTED X4. MEMORY APPEARS TO BE INTACT. RESPS EASY AND EVEN ON 3L VIA NC. PT REPORTS FEELING OF DEPRESSION AND SADNESS, STATES "I THINK I'LL BE A LITTLE BLUE FOR QUITE A WHILE". AFFECT CONGRUENT WITH MOOD. SPEECH IS WNL AND COHERENT, ABLE TO MAKE NEEDS KNOWN WITHOUT DIFFICULTY. PT DENIES SI/HI, INTENT OR PLAN. PT DENIES HALLUCINATIONS, NO RESPONSE TO INTERNAL STIMULI NOTED. PT RECEPTIVE TO 1:1 WITH THIS RN, SPOKE OPENLY ABOUT HER FEELINGS REGARDING THE RECENT OF HER . STATES YESTERDAY WAS AN ESPECIALLY DIFFICULT DAY SINCE IT WAS THEIR WEDDING ANNIVERSARY. PT STATES SHE "KEPT BUSY" ALL DAY YESTERDAY WITH PEERS WHICH WAS HELPFUL. PT STATES SHE WOKE UP THIS MORNING WORRYING ABOUT "ALL THE THINGS I NEED TO GET DONE" BUT STATES "I'M TRYING TO DO WHAT THE DOCTOR RECOMMENDED AND SPEND SOME TIME TAKING CARE OF ME TOO". PT REPORTS DIFFICULTY FALLING ASLEEP BUT STATES ONCE SHE WAS ASLEEP SHE SLEPT WELL. PT STATES "I'VE ALWAYS HAD TROUBLE FALLING ASLEEP. THAT'S NORMAL FOR ME". PT REPORTS APPETITE IS GOOD. PT REPORTED FEELING GOOD ABOUT HERSELF THIS AM SINCE SHE WAS ABLE TO GET UP AND GET A SHOWER, WASH HER HAIR AND BRUSH HER TEETH TODAY. POSITIVE REINFORCEMENTS PROVIDED. PT ALSO VOICES FORWARD THINKING SHE SPEAKS ABOUT HER PLANS FOR THE FUTURE TO EVENTUALLY GET A SMALLER PLACE TO LIVE WITH LESS MAINTENANCE NEEDS. NO DISTRESS NOTED. P- PLAN TO CONTINUE CURRENT TREATMENT, CONTINUE TO MONITOR MOOD AND BEHAVIORS. PROVIDE APPROPRIATE REORIENTATION, REDIRECTION AND 1:1 NEEDED. CONTINUE TO ENCOURAGE MEDICATION COMPLIANCE WELL GROUP ATTENDANCE AND PARTICIPATION.
[2019-05-25 14:08] VITALS: BP 142/92
--- NOTE | 2019-05-25 15:40 | NUR ---
PT ASSESSED FOR HOME O2 FOLLOWS: SAT 93% RA AT REST HR 107 BP 143/48 SAT 88% RA DURING AMBULLATION FROM BED TO DOORWAY SAT 92-94% WITH 2L/M NC APPLIED DURING AMBULATION SAT 93-94% RA H4 113 BP 134/55 DURING RECOVERY (REST) PT AMBULATING COMPLETE LAP AROUND 4E. TOLERATING WELL. NOTIFIED, RN NOTIFIED. O2 CALLED INTO [facility].
--- NOTE | 2019-05-25 18:51 | NUR ---
THIS RN ALERTED PT C/O NOT FEELING WELL. PT IN DINING ROOM WORKING ON WRITING 'S OBITUARY. PT CRYING "I MISS THERESE". PT APPEARS VISIBLY UPSET, ANXIOUS, CRYING AND TEARFUL. PT C/O FEELING LIKE HER BLOOD PRESSURE WAS HIGH. BP 170/98 MANUAL, HR 120 RADIALLY, RESPS 24, POX 96% 4L VIA NC. PT DENIES CHEST PAIN, JAW PAIN OR NUMBNESS TO ARM. PT REPEATEDLY STATING "I JUST WANT MY THERESE". PT STATES SHE IS UNABLE TO TAKE PO ATIVAN AT THIS TIME FOR INCREASED ANXIETY BUT WOULD ACCEPT INJECTION TO AIDE IN CALMING PT. UPDATED WITH THE ABOVE, STATES TO NOTIFY HOSPITALIST TEAM IF BP/HR DOES NOT DECREASE FOLLOWING ADMINISTRATION OF PRN ATIVAN. PT ASSISTED TO PT ROOM PER REQUEST. RN REMAINS AT BEDSIDE PROVIDING THERAPEUTIC 1:1. PRN ATIVAN 1MG IM GIVEN TO LEFT DELTOID AT 1851. RN REMAINED AT BEDSIDE AN ADDITIONAL 15 MINUTES. ATIVAN TAKING EFFECT. PT MORE CALM, RESPS EASY AND EVEN ON 4L NC. PT STATES SHE IS STARTING TO FEEL BETTER. PT STATES "I DID THE BEST I COULD, I JUST NEVER THOUGHT I'D BE DOING THIS". EMOTIONAL SUPPORT PROVIDED. PT VISIBLY CALMER. REMINDED PT TO PRESS CALL BRAVO IF SYMPTOMS RETURN OR WORSEN. PT VERBALIZED UNDERSTANDING AND STATES "THANK YOU AND THANK EVERYONE ELSE TOO FOR HELPING ME". ONCOMING RN UPDATED.
--- NOTE | 2019-05-25 21:32 | NUR ---
P--GRIEVINY/ANXIETY I- CLIENT ISOLATIVE TO ROOM. EASILY AWAKENED WITH VOICE. 1:1 TO ALLOW CLIENT TO VENT. MEDICATION EDUCATION COMPLETED. EMOTIONAL SUPPORT PROVIDED R--OH HI, YOU ARE THE NIGHT NURSE. I HAD SUCH A BAD DAY TODAY. I HAVE HAD PANIC ATTACKS BEFORE BUT NEVER LIKE TODAY. THE FIRST ONE STARTED WITH THUMPING IN MY EARS, GOT NAUSEA AND FELT LIKE I WAS GOING TO PASS OUT. BERNARD SIGNALLED THE STAFF AND THEY CAME RIGHT AWAY. THE 2ND WAS THE WORST. I THOUGHT IT WAS A SILENT PANIC ATTACK. THE MEDICINE REALLY HELPED. P--MONITOR FOR SAFETY, CHANGE IN MOOD OR BEHAVIOR. CONTINUE EMOTIONAL SUPPORT
--- NOTE | 2019-05-26 04:16 | NUR ---
24 HR chart check completed.
--- NOTE | 2019-05-26 04:29 | NUR ---
UP TO VOID. REQUESTED RESP TREATMENT. RESP CALLED AND NOTIFIED
--- NOTE | 2019-05-26 06:20 | NUR ---
SLEPT POOR AGAIN. APPROX 4.5 BROKEN HOURS OF SLEEP. DID RETURN TO SLEEP AFTER RESP TREATMENT COMPLETED
[2019-05-26 08:03] VITALS: BP 127/88
--- NOTE | 2019-05-26 08:06 | NUR ---
PT AWAKE, ALERT AND VERBAL. RESPS EASY AND EVEN ON 3L VIA NC. AMBULATED TO BATHROOM FOR BREAKFAST. NO DISTRESS NOTED.
--- NOTE | 2019-05-26 08:15 | NUR ---
ON UNIT TO SEE PT AT THIS TIME. UPDATE GIVEN.
--- NOTE | 2019-05-26 08:30 | NUR ---
Treatment Plan meeting with Dr. Leone, RN, AT, SW and Tile Roofer. Plan for discharge at the end of the week. Plan at this time is for patient to return home.
--- NOTE | 2019-05-26 14:31 | NUR ---
ON UNIT TO SEE PT AT THIS TIME.
--- NOTE | 2019-05-26 14:56 | NUR ---
Met with pt this AM who shared about her experiences over the weekend. Pt stated that she currently was working on writing her 's obituary and that she found that to be very difficult. Empathized with pt and support provided. Pt spoke of an outstanding bill that she needs to pay and asked that this program writer contact pt's cousin who has the statement. Pt stated that she will have less anxiety when she knows all of her bills have been paid. This program writer left a voicmail message for pt's cousin Nico after conversation with pt.
--- NOTE | 2019-05-26 15:54 | NUR ---
P- DEPRESSED MOOD, PT REPORTS IMPROVEMENT IN ANXIETY SYMPTOMS TODAY, PT WORKING THROUGH GRIEVING THE LOSS OF HER AND HANDLING PERSONAL AFFAIRS. PT STATES THESE PAST FEW DAYS HAVE BEEN EMOTIONALLY EXHAUSTING FOR HER. I- ORIENTATION, MOOD AND BEHAVIOR ASSESSED. ASSESSED PT FOR SI/HI, INTENT OR PLAN. ASSESSED PT FOR S/S HALLUCINATIONS, PARANOIA AND/OR DELUSIONS. MEDICATIONS ADMINISTERED PER PHYSICIAN'S ORDERS. 1:1 AND EMOTIONAL SUPPORT PROVIDED. ENCOURAGED PT TO ATTEND AND PARTICIPATE IN [facility] GROUPS AND ACTIVITIES. R- PT IS ALERT AND ORIENTED X4. MEMORY INTACT. RESPS EASY AND EVEN ON 4L VIA NC. MOOD REMAINS DEPRESSED, MILDLY TEARFUL AT TIMES. PT C/O FEELING EMOTIONALLY DRAINED FOLLOWING THE EVENTS OF THE PAST FEW DAYS. PT REPORTS TODAY IS A BETTER THAN YESTERDAY, STATES ANXIETY HAS LESSENED WITH HELP OF NEW MEDICATIONS AND SHE STATES A SENSE OF RELIEF SINCE BEING ABLE TO FINALIZE THE WRITING OF HER 'S OBITUARY WHICH WAS A SOURCE OF ANXIETY/STRESS FOR HER. AFFECT IS APPROPRIATE. SPEECH IS WNL AND COHERENT, ABLE TO MAKE NEEDS KNOWN WITHOUT DIFFICULTY. PT DENIES SI/HI, INTENT OR PLAN. PT DENIES HALLUCINATIONS, NO RESPONSE TO INTERNAL STIMULI NOTED. NO PARANOIA OR DELUSIONS NOTED. PT IS CALM, PLEASANT AND COOPERATIVE. INTERACTIVE WITH STAFF AND PEERS. PT IS MEDICATION COMPLIANT WITHOUT DIFFICULTY. PT DECLINED 1PM ROUTINELY SCHEDULED ATIVAN, STATES "I REALLY DON'T THINK I NEED IT". NO DISTRESS NOTED. P- PLAN TO CONTINUE CURRENT TREATMENT, CONTINUE TO MONITOR MOOD AND BEHAVIORS. PROVIDE APPROPRIATE REORIENTATION, REDIRECTION AND 1:1 NEEDED. CONTINUE TO ENCOURAGE MEDICATION COMPLIANCE WELL GROUP ATTENDANCE AND PARTICIPATION.
--- NOTE | 2019-05-26 17:01 | NUR ---
PM GROUP/MUSIC/ART PT ATTENDED AND PARTICIPATED IN ALL ACTIVITY'S. PT PLEASANT AND ON TASK BUT DID BECOME TEARFUL WHEN PEER DISCHARGED. PT BACK ON TASK AND PLEASANT REMAINDER OF GROUP WITH NO S.I. OR ANXIETY EXPRESSED. PT WILL CONTINUE OT ATTEND AND PARTICIPATE IN FUTURE GROUP SESSIONS.
[2019-05-26 20:00] VITALS: BP 126/62
--- NOTE | 2019-05-26 20:46 | NUR ---
EVENING/RELAXTION/POSITIVE QUOTES PT ATTENDED AND PARTICIPATED IN ALL GROUP ACTIVITIES. PT DID NOT EXPRESS ANY S.I. OR ANXIETY AT THIS TIME. PT WILL CONTINUE TO ATTEND AND PARTICIPATE IN FUTURE GROUP SESSIONS.
--- NOTE | 2019-05-26 23:33 | NUR ---
PT INTERACTIVE THIS EVENING WITH PEERS, SMILES WHEN SPOKEN TO, STATED SHE WAS TIRED FROM TALKING ALL DAY WITH EVERYONE. PT STATES SHE FEELS BETTER AND 1 DAY AT A TIME HAS HELPED. SHE DID TAKE THE ATIVAN THIS EVENING STATING IT DID HELP HER DURING THE DAY TO DECREASE HAVING PANIC ATTACKS. PT MEDICATION COMPLIANT WITH NO DELUSIONS OR SI/HI NOTED. CONTINUE TO MONITOR 15 MIN CHECKS
--- NOTE | 2019-05-27 03:07 | NUR ---
24 HR chart check completed.
[2019-05-27 07:34] VITALS: BP 108/69
--- NOTE | 2019-05-27 11:47 | NUR ---
AM GROUP/CURRENT EVENTS PT WAS LATE TO MORNING GROUP THERAPY. PT WAS GETTING A SHOWER. PT ENTERED GROUP AND PARTICIPATED BY WORKING ON A DRAWING. PT EXPRESSED NO SUICIDAL IDEATIONS WHILE IN GROUP NOR EXHIBITED ANY ANXIETY
--- NOTE | 2019-05-27 14:34 | NUR ---
Phoned Dr Singer's office and cancelled pt's appointment. Instructed to call when discharge date is determined to reschedule pt's appointment.
--- NOTE | 2019-05-27 14:36 | NUR ---
Met with pt and her cousin Nico. Pt reviewed her finances with Nico and asked him to do some follow-ups for her. Discussed pt's discharge. Pt states that she wants to return to her home. Nico stated that he plans on helping pt to make her home more suitable and accommodating to pt's needs. Pt did not display anxiety throughout this interaction. She admits to sadness and feelings of exhaustion.
--- NOTE | 2019-05-27 15:39 | NUR ---
PM GROUP/LEISURE INTERESTS PT ATTENDED AFTERNOON GROUP THERAPY AND PARTICIPATED BY COLORING, SOCIALIZING AND LISTENING TO MUSIC. PT EXPRESSED NO SUICIDAL IDEATIONS WHILE IN GROUP NOR EXHIBITED ANY ANXIETY.
--- NOTE | 2019-05-27 16:14 | NUR ---
PT ALERT TO PERSON, PLACE, TIME AND SITUATION. PT MED COMPLIANT WITHOUT DIFFICULTY, MED EDUCATION PROVIDED. PT CALM, MOOD IS DEPRESSED. PT INTERACTIVE WITH STAFF AND PEERS. NO HALLUCINATIONS OR DELUSIONS NOTED. PT DENIES ANY SUICIDAL THOUGHTS. PT AMBULATORY THROUGHOUT UNIT, GAIT STEADY. PT CONTINENT OF BOWEL AND BLADDER. PLAN IS TO MONITOR PT BEHAVIORS ON Q15 MIN SAFETY CHECKS, ENCOURAGE MED COMPLIANCE AND PROVIDE MED EDUCATION, PROVIDE EMOTIONAL SUPPORT AND 1:1 FOR PT TO VOICE FEELINGS.
[2019-05-27 20:00] VITALS: BP 114/74
--- NOTE | 2019-05-27 20:53 | NUR ---
EVENING PT ATTENDED AND PARTICIPATED IN GROUP. PT ON TASK WITH NO S.I. OR ANXIETY EXPRESSED. PT WILL CONTINUE TO ATTEND AND PARTICIPATE IN FUTURE GROUP SESSIONS.
--- NOTE | 2019-05-27 22:35 | NUR ---
Patient alert and oriented x4. Patient isolative to room this evening. Patient states " I had a good day today." Patient compliant with medications without any difficulty. Provided 1:1 for venting of thoughts and for emotional support. Plan to continue to encourage medication compliance and continue to provide emotional support when needed. Q 15 minute safety checks continued and maintained. See [facility] flowsheet for further documentation.
--- NOTE | 2019-05-28 01:06 | NUR ---
24 HR chart check completed.
--- NOTE | 2019-05-28 02:34 | NUR ---
PT REQUESTING BREATHING TREATMENT AT THIS TIME. NOTIFIED RESPIRATORY, STATED THEY WILL BE UP SHORTLY.
--- NOTE | 2019-05-28 04:49 | NUR ---
Patient slept approx. 5 hours throughout shift. Q 15 minute safety checks continued and maintained.
[2019-05-28 07:33] VITALS: BP 129/77
--- NOTE | 2019-05-28 08:10 | NUR ---
Treatment Plan meeting with Dr. Leone, RN, AT, SW and Green Chain Puller. Plan for discharge Sunday. Pt. will return home with family support and follow up appointments arranged.
--- NOTE | 2019-05-28 11:14 | NUR ---
DR. AQUINO ON UNIT TO ASSESS PT, UPDATE PROVIDED.
--- NOTE | 2019-05-28 11:49 | NUR ---
AM GROUP PT DID NOT ATTEND MORNING GROUP THERAPY. PT WAS IN BED RESTING
--- NOTE | 2019-05-28 14:16 | NUR ---
CALL PLACED TO DR MCNALLY REGARDING PT NEEDING AN OXYGEN ORDER. STATED HE WOULD TAKE CARE OF IT.
--- NOTE | 2019-05-28 15:38 | NUR ---
Met with pt individually this afternoon. Discussed pt's current mood. Discussed her plans upon discharge. Pt confirmed that she wants to return to her house and that she believes that she will not feel overwhelmed there. She shared that her cousin Nico and his have been in her house cleaning it since pt has been in the [facility]. Pt explained that she has a plan to utilize a few rooms on the main floor as her primary living space. Asked pt about plans to occupy herself when she returns home. Pt stated that she has many belongings to go through and sort out and that she is looking forward to that. Discussed pt completing a DPOAHC and Living Will. This typewriter ribbon winder will assist pt with that prior to her discharge. Pt continues to voice that she is depressed but that her anxiety has lessened.
--- NOTE | 2019-05-28 15:49 | NUR ---
PM GROUP/ART AND MUSIC PT ATTENDED AFTERNOON GROUP THERAPY AND PARTICIPATED BY COLORING WITH MARKERS. PT WAS QUIET AND ON TASK. PT EXPRESSED NO SUICIDAL IDEATIONS WHILE IN GROUP
[2019-05-28 19:55] VITALS: BP 136/64
--- NOTE | 2019-05-28 20:00 | NUR ---
Patient resting quietly with no c/o discomfort. Respirations easy and regular. Vital signs stable. No overt distress. SHERIF OROZCO
--- NOTE | 2019-05-28 23:21 | NUR ---
PT DEPRESSED. STATES THAT SHE IS EXHAUSTED FROM LACK OF SLEEP. ASSESSED FOR ORIENTATION LEVEL, MOOD, AND AFFECT. ASSESSED FOR SI/HI. ASSESSED FOR HALLUCINATIONS AND DELUSIONS. ASSESSED FOR SLEEP QUALITY AND APPETITE. ENCOURAGE MEDICATION COMPLIANCE. PROVIDE 1:1 IN LOW STIMULATION ENVIRONMENT, ENCOURAGE PT TO VERBALIZE NEGATIVE THOUGHT PROCESSES. PT IS ALERT, ORIENTED X 4. STATES THAT HER MOOD REMAINS SOMEWHAT DEPRESSED, STATES SHE IS MOSTLY JUST TIRED. PT STATES THAT OTHER PT'S KEPT COMING INTO HER ROOM LAST NIGHT AND WAKING HER UP. STATES THAT SHE PARTICIPATED IN GROUP THERAPY TODAY AND WAS UP FOR THE MAJORITY OF THE DAY, THAT SHE WOULD LIKE NOTHING MORE THAN A GOOD NIGHT'S SLEEP. PT AFFECT IS APPROPRIATE T/O VERBAL INTERACTION, EYE CONTACT GOOD. PT DENIES SI, INTENT OR PLAN. PT APPEARS GOAL ORIENTED, STATING SHE FEELS THAT SHE FEELS BETTER AT THIS TIME, LESSENED ANXIETY. PT REVERTS CONVERSATION BACK TO HOW TIRED SHE IS. PT ENCOURAGED TO REST, EDUCATED THAT STAFF WILL TRY TO OBSERVE HER QUIETLY T/O THE NIGHT SO TO PROMOTE RESTFUL SLEEP. WILL CONTINUE TO MONITOR PT'S MOOD. WILL PROVIDE 1:1 FOR EMOTIONAL SUPPORT APPROPRIATE. WILL MAKE EFFORT TO OBSERVE PT WITHOUT DISRUPTION T/O NIGHT. Q 15 MIN MONITORING PER POLICY.
--- NOTE | 2019-05-29 01:58 | NUR ---
PT REQUESTING BREATHING TX AT THIS TIME. RT NOTIFIED. STATES "OK. WE WILL BE RIGHT UP"
--- NOTE | 2019-05-29 01:59 | NUR ---
24 HR chart check completed.
--- NOTE | 2019-05-29 03:58 | NUR ---
PT REQUESTING TYLENOL FOR C/O SHOULDER DISCOMFORT. ADMINISTERED PER PRN ORDER
--- NOTE | 2019-05-29 05:51 | NUR ---
PT RESTING QUIETLY IN BED AT THIS TIME. PRN APPEARS EFFECTIVE.
--- NOTE | 2019-05-29 06:02 | NUR ---
PT SLEPT AN INTERRUPTED 8 HOURS THIS SHIFT. PT STATES THIS IS HER NORMAL AND SHE HAS NEVER BEEN THE TYPE OF PERSON WHO SLEEPS ALL NIGHT.
--- NOTE | 2019-05-29 07:51 | NUR ---
PT AWAKE AND ALERT. VERBAL AND PLEASANT. RESPS EASY AND EVEN ON 3L VIA NC. AMBULATED TO DINING ROOM FOR BREAKFAST WITH ROOMMATE.
[2019-05-29 07:53] VITALS: BP 147/80
--- NOTE | 2019-05-29 08:07 | NUR ---
ON UNIT TO SEE PT AT THIS TIME. UPDATE GIVEN.
--- NOTE | 2019-05-29 08:30 | NUR ---
Treatment Plan meeting with Dr. Leone, RN, AT, SW and Winding Inspector. Plan for discharge next week. Pt. will return home with family assistance.
--- NOTE | 2019-05-29 11:19 | NUR ---
AND ON UNIT TO SEE PT AT THIS TIME.
--- NOTE | 2019-05-29 11:58 | NUR ---
AM GROUP NO AM GROUP THERAPY THIS MORNING DUE TO 1:1 WITH NEW PT
--- NOTE | 2019-05-29 14:22 | NUR ---
Met with pt individually in late morning. Pt stated that she continues to feel depressed but not suicidal. Discussed pt's grieving about the of her . Discussed pt's plans upon discharge. Pt shared that she is continuing to work with her cousin who is helping to get pt's house in order. After lunch, assisted pt in completing [facility] and Living Will documents. Copy placed on pt's chart. Original and copies will be sent with pt upon discharge.
--- NOTE | 2019-05-29 15:54 | NUR ---
PM GROUP PT ATTENDED AND PARTICIPATED IN AFTERNOON GROUP THERAPY BY COLORING AND SOCIALIZING. PT EXPRESSED NO SUICIDAL IDEATIONS WHILE IN GROUP
--- NOTE | 2019-05-29 18:07 | NUR ---
P- PT CONTINUES TO ADMIT TO FEELINGS OF DEPRESSION BUT STATES SHE CONTINUES TO FEEL BETTER, STATES THAT SYMPTOMS OF ANXIETY OF LESSENED. PT DENIES SUICIDAL IDEATIONS, VOICES FORWARD THINKING AND PLANS FOR THE FUTURE. PT C/O "STILL FEELING TIRED" AND STATES "I KNOW IT'S FROM DEALING WITH ALL OF THIS" IN REFERENCE TO THE RECENT PASSING OF HER AND DEALING WITH PERSONAL AFFAIRS. I- ORIENTATION, MOOD AND BEHAVIOR ASSESSED. ASSESSED PT FOR SI/HI, INTENT OR PLAN. ASSESSED PT FOR S/S HALLUCINATIONS, PARANOIA AND/OR DELUSIONS. MEDICATIONS ADMINISTERED PER PHYSICIAN'S ORDER. ASSISTANCE WITH ADL CARE PROVIDED NEEDED. ENCOURAGED PT TO ATTEND AND PARTICIPATE IN [facility] GROUPS AND ACTIVITIES. R- PT IS ALERT AND ORIENTED X4. MEMORY APPEARS TO BE INTACT. RESPS EASY AND EVEN ON ROOM AIR. MOOD REMAINS DEPRESSED, AFFECT APPROPRIATE. PT REPORTS SHE IS FEELING BETTER. PT REPORTS ANXIETY HAS DECREASED. PT DENIES SI/HI, INTENT OR PLAN. VOICES POSITIVE PLANS FOR THE FUTURE, MAKING "TO DO" LISTS OF THINGS TO ACCOMPLISH REGARDING HER HOME. PT STATES HER FAMILY IS HELPING HER PREPARE FOR DISCHARGE AND HAS HELPED HER GET A NEW DINING ROOM TABLE WHICH WILL BE MORE MANAGEABLE FOR HER AND ARE HELPING PAINT ROOMS IN HER HOME. PT DENIES HALLUCINATIONS, NO RESPONSE TO INTERNAL STIMULI NOTED. NO PARANOIA OR DELUSIONS NOTED. PT IS MEDICATION COMPLIANT WITHOUT DIFFICULTY. INTERACTIVE WITH STAFF AND PEERS. NO DISTRESS NOTED. P- PLAN TO CONTINUE CURRENT TREATMENT, CONTINUE TO MONITOR MOOD AND BEHAVIORS, PROVIDE APPROPRIATE REORIENTATION, REDIRECTION AND 1:1 NEEDED. CONTINUE TO ENCOURAGE MEDICATION COMPLIANCE WELL GROUP ATTENDANCE AND PARTICIPATION.
--- NOTE | 2019-05-29 18:20 | NUR ---
SHIFT CHART CHECK COMPLETED.
--- NOTE | 2019-05-29 18:49 | NUR ---
PT REQUESTED BREATHING TX AT THIS TIME, CALL PLACED TO RESPIRATORY TO MAKE AWARE.
[2019-05-29 19:46] VITALS: BP 143/81
--- NOTE | 2019-05-29 21:12 | NUR ---
Patient alert and oriented x4. Patient isolative to room except for mealtime and she refused snack this evening. Patient states "I had a good day today." Patient denies any suicidal thoughts. Patient compliant with medications without any difficulty. Provided 1:1 for venting of thoughts and for emotional support. Plan to continue to encourage medication compliance and continue to provide emotional support when needed. Will continue to encourage interaction with other patients and encourage to participate in groups. Q 15 minute safety checks continued and maintained. See [facility] flowsheet for further documentation.
--- NOTE | 2019-05-30 00:35 | NUR ---
24 HR chart check completed.
--- NOTE | 2019-05-30 03:22 | NUR ---
Medicated with Tylenol po prn for c/o generalized discomfort.
--- NOTE | 2019-05-30 05:46 | NUR ---
Patient slept approx. 7 hours throughout shift. Q 15 minute safety checks continued and maintained.
[2019-05-30 07:38] VITALS: BP 137/90
--- NOTE | 2019-05-30 09:00 | NUR ---
Treatment Plan meeting with Dr. Leone, RN, AT, SW and Technical Assistant. Plan for discharge Sunday. Pt. will return home with family to assist.
--- NOTE | 2019-05-30 10:43 | NUR ---
DR. AQUINO ON UNIT TO ASSESS PT, UPDATE PROVIDED.
--- NOTE | 2019-05-30 11:15 | NUR ---
P: PT MOOD IS DEPRESSED. PT TEARFUL AT TIMES, ESPECIALLY WHEN SPEAKING ABOUT HER . PT ISOALTIVE TO HER ROOM THIS AM. I: PROVIDED EMOTIONAL SUPPORT AND 1:1 FOR PT TO VOICE FEELINGS, ENCOURAGED GROUP PARTICIAPTION AND SOCIALIZATION. R: PT ALERT TO PERSON, PLACE, TIME AND SITUATION. PT MED COMPLIANT WITHOUT DIFFICUTLY, MED EDUCATION PROVIDED. PT RETURNED TO ROOM AFTER BREAKFAST, COMING OUT AROUND 11AM. PT SPOKE AT LENGTH REGARDING HER AND THE LIFE THEY LIVED. PT STATES "I JUST MISS HIM SO MUCH". NO HALLUCINATIONS OR DELUSIONS NOTED. PT DENIES ANY SUICIDAL THOUGHTS, VERBALLY CONTRACTS FOR SAFETY WITH STAFF IF SUCH THOUGHTS ARISE. PT AMBULATORY THROUGHOUT UNIT. GAIT STEADY. PT CONTINENT OF BOWEL AND BLADDER. PT REMAINS ON 3L O2 NC, PT REPORTS COUGHING UP LIGHT TO DARK GREEN PHELGM, DR REILLY, NEW ORDERS RECEIVED. P: MONITOR PT BEHAVIORS ON Q15 MIN SAFETY CHECKS, ENCOURAGE MED COMPLIANCE AND PROVIDE MED EDUCATION, PROVIDE EMOTIONAL SUPPORT AND 1:1 FOR PT TO VOICE FEELINGS, ENCOURAGE PT TO VOICE ANY SUICIDAL THOUGHTS AND VERBALLY CONTRACT FOR SAFETY IF SUCH THOUGHTS ARISE.
--- NOTE | 2019-05-30 12:55 | NUR ---
Met with pt individually. Pt spoke of her 's obituary. Discussed the difficulty for pt to write this and then read it. Discussed grieving further and possibility of pt attending a grief support group after discharge. Pt is accepting of that. Again reviewed pt's plans for when she returns home. Pt continues to voice depression as she adjusts to and grieves the loss of her . Pt voices that she is less anxious. She is future-oriented as she shares her plans for changes to her house and has a willingness to attend grief support group.
[2019-05-30 19:37] VITALS: BP 125/78
--- NOTE | 2019-05-31 02:10 | NUR ---
P-DEPRESSED MOOD. I-ASSESS ORIENTATION, MOOD, AND BEHAVIOR. ASSESS FOR SI/HI AND HALLUCINATIONS. PROVIDE 1:1 WITH EMOTIONAL SUPPORT NEEDED. ENCOURAGE MEDICATION COMPLIANCE AND EDUCATE. MONITOR SLEEP. R-PATIENT ALERT AND ORIENTED X4, MOOD DEPRESSED. PT CALM AND COOPERATIVE, ISOLATIVE A TIMES. PT STATED DURING 1:1 THAT SHE HAD A HARD TIME TODAY SINCE SEEING HER HUSBANDS OBITUARY IN THE PAPER, ALSO THAT SHE HAS BEEN CRYING OFF AND ON. EMOTIONAL SUPPORT PROVIDED AT THAT TIME WITH POSITIVE EFFECT. PT DENIES ANY SI/HI, PT INFORMED THAT IF THOUGHTS ARISE TO HARM SELF OR OTHERS TO NOTIFY STAFF, PT CONTRACTED FOR SAFETY. NO HALLUCINATIONS, PARANOIA, OR DELUSIONS NOTED. NO PHYSICAL COMPLAINTS VOICED. PATIENT MEDICATION COMPLIANT WITHOUT DIFFICULTY AFTER REVIEW. PT CURRENTLY LAYING DOWN WITH EYES CLOSED, RESPIRATIONS EASY AND REGULAR ON 3L NC ORDERED, NO SIGNS OR SYMPTOMS OF DISTRESS NOTED. P-CONTINUE TO MONITOR MOOD AND BEHAVIORS. PROVIDE 1:1 FOR VENTILATION OF FEELINGS WITH EMOTIONAL SUPPORT NEEDED. ENCOURAGE MEDICATION COMPLIANCE AND EDUCATE. MAINTAIN Q 15 MIN CHECKS.
--- NOTE | 2019-05-31 03:38 | NUR ---
24 HOUR CHART CHECK COMPLETED.
--- NOTE | 2019-05-31 06:18 | NUR ---
PATIENT OBSERVED ON Q 15 MIN CHECKS TO HAVE SLEPT APPROX 7 HOURS WITH X1 AWAKENING TO RECIEVE A BREATHING TX. NO SIGNS OR SYMPTOMS OF DISTRESS NOTED.
[2019-05-31 07:58] VITALS: BP 151/83
--- NOTE | 2019-05-31 12:34 | NUR ---
AM GROUP/EXERCISE/BINGO! PT ATTENDED AND PARTICIPATED IN ALL GROUP ACTIVITY. PT PLEASANT AND ON TASK WITH NO S.I. OR ANXIETY EXPRESSED. PT WILL CONTINUE TO ATTEND AN DPARTICIPATE IN FUTURE GROUP SESSIONS.
--- NOTE | 2019-05-31 15:53 | NUR ---
PM GROUP/ART/FOOTBALL PT ATTENDED AND PARTICIPATED IN ALL GROUP ACTIVITY'S. PT PLEASNAT AN DON TASK WITH NO S.I. OR ANXIETY EXPRESSED. PT WILL CONTINUE TO ATTEND AN DPARTICIPATE IN FUTURE GROUP SESSIONS.
--- NOTE | 2019-05-31 18:39 | NUR ---
MEDICAL P: PT C/O INDIGESTION AND UPPER ABDOMINAL DISCOMFORT. PT PROVIDED WITH MILK AND MAALOX PER PRN ORDER AT 1754. PT STATES THAT SHE ALREADY FEELS BETTER. PT STATES THAT PRN IS EFFECTIVE AND SHE DENIES ANY CURRENT DISCOMFORT. WILL CONTINUE TO MONITOR PT FOR DISCOMFORT, PROVIDED PHARMACOLOGICAL AND NONPHARMACOLOGICAL INTERVENTIONS APPROPRIATE. Q15 MIN MONITORING PER POLICY.
[2019-05-31 20:00] VITALS: BP 130/70
--- NOTE | 2019-06-01 04:38 | NUR ---
NO ADVERSE BEHAVIORS NOTED THIS SHIFT. PT ALERT AND ORIENTED X4. MOOD STABLE. PT CALM, COOPERATIVE, ISOLATIVE AT TIMES. DURING 1:1 PATIENT STATED THAT SHE WAS DOING MUCH BETTER TODAY THAN YESTERDAY, NOT DEPRESSED. PT DENIES SI/HI AND HALLUCINATIONS, NO NOTED RESPONDING TO INTERNAL STIMULI. NO PARANOIA/DELUSIONS NOTED. PT MEDICATION COMPLIANT WITHOUT DIFFICULTY AFTER REVIEW. NO PHYSICAL COMPLAINTS VOICED. PATIENT CURRENTLY LAYING DOWN WITH EYES CLOSED, RESPIRATIONS EASY AND REGULAR ON 3L NC, NO SIGNS OR SYMPTOMS OF DISTRESS NOTED. PLAN IS TO CONTINUE TO MONTIOR MOOD AND BEHAVIORS. PROVIDE 1:1 WITH REALITY ORIENTATION AND REDIRECTION NEEDED. ENCOURAGE MEDICATION COMPLIANCE AND EDUCATE. MAINTAIN Q 15 MIN CHECKS.
--- NOTE | 2019-06-01 06:02 | NUR ---
PATIENT OBSERVED ON Q 15 MIN CHECKS TO HAVE SLEPT APPROX 5 HOURS WITH NO AWAKENINGS OR SIGNS AND SYMPTOMS OF DISTRESS NOTED.
--- NOTE | 2019-06-01 06:46 | NUR ---
24 HOUR CHART CHECK COMPLETED.
[2019-06-01 07:54] VITALS: BP 110/67
--- NOTE | 2019-06-01 09:03 | NUR ---
Patient resting quietly with no c/o discomfort. Respirations easy and regular. Vital signs stable. No overt distress. SHERIF OROZCO
--- NOTE | 2019-06-01 11:40 | NUR ---
PT C/O INDIGESTION AND UPPER ABDOMINAL DISCOMFORT. STATES "IT IS PROBABLY JUST ANXIETY, CAN I GET SOME MAALOX?" MAALOX GIVEN AT THIS TIME PER PRN ORDER.
--- NOTE | 2019-06-01 12:30 | NUR ---
PT STATES MAALOX IS EFFECTIVE AT THIS TIME. DENIES FURTHER DISCOMFORT.
--- NOTE | 2019-06-01 12:32 | NUR ---
AM GROUP/BIRDHOUSES/MUSIC PT ATTENDED AND PARTICIPATED IN ALL GROUP ACTIVITY'S. PT DID BECOME TEARFUL WHILE READING MAGAZINE CUT-OUTS DUE TO SOME OF THE QUOTES THEY REMINDED HER OF HER . PT BACK ON TRACK AFTER A FEW MINUTES OF TEARS. PT PLANS FOR DISCHARGE SOMETIME TOMORROW.
[2019-06-01 20:00] VITALS: BP 125/66
--- NOTE | 2019-06-01 23:16 | NUR ---
NO ADVERSE BEHAVIORS NOTED THIS SHIFT. PT ALERT AND ORIENTED X4. MOOD STABLE. PT CALM, COOPERATIVE, INTERACTIVE. PT DENIES SI/HI AND HALLUCINATIONS, NO NOTED RESPONDING TO INTERNAL STIMULI. NO PARANOIA/ DELUSIONS NOTED. PT MEDICATION COMPLIANT WITHOUT DIFFICULTY AFTER REVIEW. NO PHYSICAL COMPLAINTS VOICED. PATIENT CURRENTLY LAYING DOWN WITH EYES CLOSED, RESPIRATIONS EASY AND REGULAR ON 3L NC, NO SIGNS OR SYMPTOMS OF DISTRESS NOTED. PLAN IS TO CONTINUE TO MONTIOR MOOD AND BEHAVIORS. PROVIDE 1:1 WITH REALITY ORIENTATION AND REDIRECTION NEEDED. ENCOURAGE MEDICATION COMPLIANCE AND EDUCATE. MAINTAIN Q 15 MIN CHECKS.
--- NOTE | 2019-06-02 00:46 | NUR ---
24 HOUR CHART CHECK COMPLETED.
--- NOTE | 2019-06-02 03:13 | NUR ---
PATIENT RECEIVED PRN TYLENOL 650MG PO REQUESTED FOR ALL OVER PAIN WITH A RATING OF 8/10 AT 0311. NO OTHER PHYSICAL COMPLAINTS NOTED. WILL CONTINUE TO MONITOR EFFECTIVENESS.
--- NOTE | 2019-06-02 05:02 | NUR ---
PATIENT OBSERVED ON Q 15 MIN CHECKS TO HAVE SLEPT APPROX 5 HOURS INTERRUPTED WITH MULTIPLE AWAKENINGS NOTED DURING STAFF CHECKS, PT STATED SHE IS HAVING A HARDER TIME SLEEPING THROUGHOUT THE NIGHT SINCE SHE IS ANXIOUS TO GO HOME TODAY, 1:1 WITH EMOTIONAL SUPPORT PROVIDED. NO FURTHER COMPLAINTS OF PAIN VOICED, PRN TYLENOL GIVEN AT 0311 EFFECTIVE. NO SIGNS OR SYMPTOMS OF DISTRESS NOTED.
[2019-06-02 08:24] VITALS: BP 135/89
[2019-06-02] MEDS ORDERED: MIRTAZAPINE30 M2 PO (08:46)
[2019-06-02] MEDS ORDERED: BUSPIRONE HCL10 MG PO (08:46)
[2019-06-02] MEDS ORDERED: LORAZEPAM0.5 MG PO (08:46)
[2019-06-02] MEDS ORDERED: NEURONTIN300 MG PO (08:46)
--- NOTE | 2019-06-02 09:11 | NUR ---
SPOKE WITH DR. MCNALLY AT [phone] RE: PT DISCHARGE SCHEDULED FOR TODAY AND MEDICAL MEDS NEEDING COMPLETED.
--- NOTE | 2019-06-02 10:13 | NUR ---
PT ALERT TP PERSON, PLACE, TIME AND SITUATION. PT MED COMPLIANT WITHOUT DIFFICULTY, MED EDUCATION PROVIDED. PT CALM, MOOD IS STABLE. PT DENIES ANY SUICIDAL/HOMICIDAL THOUGHTS. NO HALLUCINATIONS OR DELUSIONS NOTED. PT AMBULATORY THROUGHOUT UNIT, GAIT STEADY. PT CONTINENT OF BOWEL AND BLADDER. PT REMAINS ON 3L O2 VIA NC. NO S/S OF PAIN OR DISTRESS NOTED. PLAN IS TO PREPARE PT TO DISCHARGE AND MONITOR PT BEHAVIORS ON Q15 MIN SAFETY CHECKS.
--- NOTE | 2019-06-02 12:34 | NUR ---
PT DISCHARGED TO HOME VIA BROTHERS PRIVATE CAR, ESCORTED OFF THE UNIT VIA WHEELCHAIR. PT BELONGINGS AND DISCHARGE PAPERWORK SENT WITH PT.
--- NOTE | 2019-06-02 12:34 | NUR ---
AM GROUP PT ATTENDED AND PARTICIPATED IN MORNING GROUP THERAPY. PT EXPRESSED NO SUCIDAL IDEATIONS WHILE IN GROUP. PT IS SET TO BE DISCHARGED FROM THE UNIT TODAY.
--- NOTE | 2019-06-03 11:03 | NUR ---
UPDATE AFTER DISCHARGE:Pt had left a voicemail message for this business writer stating that she was unable to fill the Ativan script as she had recently [facility] Confirmed with Dr Leone that pt should use the Xanax in place of the Ativan at the same 0.5 mg dosage. Phoned pt and explained this to her. Had pt repeat the instructions back to this business writer. Pt was emotional. Discussed pt's first day and night home. Assisted pt in processing her emotions. Confirmed that pt would not be alone today. Her cousin is to be there today and will assist her in getting groceries. This business writer also spoke to pt's brother Que Robertson who had left a voicemail message voicing concern about pt. Offered suggestion to Que on ways in which he can be supportive to pt while she is grieving and transitioning into another phase of her life. Confirmed to both pt and Que that this business writer and [facility] team is available should pt need further assistance.
== END 2019-06-02 12:34 | disposition home or self-care (01) | DRG 885 ==
LOC: 3N 12:04
PROVIDERS: Family Medicine; ADMIT Psychiatry & Neurology Psychiatry
DX: F33.2 Major depressive disorder, recurrent severe without psychotic features (principal); J96.11 Chronic respiratory failure with hypoxia; E87.1 Hypo-osmolality and hyponatremia; J44.9 Chronic obstructive pulmonary disease, unspecified; K29.70 Gastritis, unspecified, without bleeding; F41.0 Panic disorder [episodic paroxysmal anxiety]; K21.9 Gastro-esophageal reflux disease without esophagitis; E78.5 Hyperlipidemia, unspecified; I10 Essential (primary) hypertension; Z87.891 Personal history of nicotine dependence; Z91.5 Personal history of self-harm; Z88.6 Allergy status to analgesic agent; Z82.5 Family history of asthma and other chronic lower respiratory diseases; Z83.3 Family history of diabetes mellitus; Z82.49 Family history of ischemic heart disease and other diseases of the circulatory system; Z79.899 Other long term (current) drug therapy

== ENCOUNTER 2019-06-25 19:39 | Inpatient (IN) | payer MEDICARE ==
[~2019-06-25] VITALS: Ht 170.1 cm; Wt 48.1 kg
[~2019-06-25 19:39] MED LIST changes: +BUSPIRONE HCL10 MG PO; +LORAZEPAM0.5 MG PO; +MIRTAZAPINE30 M2 PO
[2019-06-25] MEDS ORDERED: ALPRAZOLAM0.5 M3 PO (19:45)
[2019-06-25 20:12] VITALS: BP 136/77
[2019-06-25 20:34] VITALS: BP 136/77
--- NOTE | 2019-06-25 20:56 | NUR ---
SPOKE WITH DR. SHERIDAN RE: MEDICAL MANAGEMENT CNSULT NEEDED PER DR. SHERIDAN HE WILL BE DOWN TO SEE THE PT. NO FURTHER ORDERS AT THSI TIME.
--- NOTE | 2019-06-25 20:59 | NUR ---
SAMEERA MATTHEWS a 64 year old F admitted via wheel chair from the EMERGENCY ROOM as a voluntary admission. Arrived on unit at 1999 . ALLERGIES: [id number] . Vital signs are: 97.5-104-24 136/77. The client signed OR GAVE VERBAL CONSENT FOR THE the following forms with stated understanding: Authorization For The Release of Medical Information, Clothing List, Consent to Voluntary Admission and Hospitalization, Consent and Release Forms/Receipt of Rights, Acknowledgement of Advance Directive Information, Behavioral Health Consent Form, and Informed Consent of Medications. Admitted under the services of Dr. SHENG [place],[facility]. A search was conducted and hazardous articles were removed. Client was oriented to the unit. SUPA DEMARCO PT ALERT TO PERSON, PLACE, TIME AND SITUATION. PT REPORTS FEELING DEPRESSED, ANXIOUS AND OVERWHELMED WITH LIVING AT HOME ALONE. NO HALLUCINATIONS OR DELUSIONS NOTED. PT DENIES ANY SUICIDAL THOUGHTS AT THIS TIME, VERBALLY CONTRACTS FOR SAFETY IF SUCH THOUGHTS ARISE. PT ON 3L NC CONTINUOUSLY. PT AMBULATORY, GAIT OCCASIONALLY UNSTEADY. PT CONTINENT OF BOWEL AND BLADDER.
[2019-06-25] MEDS ORDERED: REMERON15 M2 PO (21:15)
--- NOTE | 2019-06-25 21:15 | NUR ---
DR. SHERIDAN ON UNIT TO ASSESS PT, UPDATE PROVIDED. PER DR. SHERIDAN HE WOULD LIKE TO HAVE THE MOVED TO TO MEDICAL UNIT FOR COPD EXACERBATION. PER DR. SHERIDAN PT IS TO BE ADMITTED UNDER THE CARE OF DR. TURNER. NURSING SERVICE COORDINATOR [facility] FACILITY NOTIFIED AND DR PATRICIO NOTIFIED, ORDERS RECEIVED TO CONTINUE PT MEDICATIONS.
[2019-06-25] MEDS ORDERED: ATIVAN1 MG PO (21:16)
--- NOTE | 2019-06-25 21:30 | NUR ---
PT DISCHARGED TO 4TH FLOOR, VIA WHEELCHAIR ESCORTED BY 2 STAFF AND SECURITY. REPORT GIVEN TO [facility]. PT BELONGINGS AND DISACHRGE PACKET SENT TO PT. PT HOME MEDICATION, PROAIR INHALER, GIVEN TO FILI RASHID. ALSO ADVSIED THAT PT HAS ITEMS IN LOCKBOX #7.
== END 2019-06-25 21:20 | disposition short-term general hospital (02) | DRG 885 ==
LOC: 3N 19:39
PROVIDERS: ADMIT Psychiatry & Neurology Psychiatry
DX: F33.2 Major depressive disorder, recurrent severe without psychotic features (principal)

== ENCOUNTER 2019-06-25 21:23 | Inpatient (IN) | payer MEDICARE ==
[~2019-06-25] VITALS: Ht 170.2 cm; Wt 50.9 kg
--- NOTE | ~2019-06-25 | CON ---
[place], [place] REPORT OF CONSULTATION NAME: SAMEERA MATTHEWS UNIT #: [id number] ROOM: [facility] DOCTOR: MOMO MONTERROSO MD BIRTHDATE: [birth year] DOS: 06/26/2019 PULMONARY CONSULTATION, EVALUATION AND MANAGEMENT CONSULTATION REQUESTED BY: Hospitalist services. HISTORY OF PRESENT ILLNESS: This is a 64-year-old female patient with past history of COPD, has been admitted to Behavioral Health Unit because of symptoms of depression. The patient has been noted with significant worsening of the respiratory status with labored breathing. She has been noted severe shortness of breath and could not speak much sentences. She has been noted severe acute exacerbation of chronic obstructive pulmonary disease and acute hypercapnic respiratory failure with possible chronic hypercapnia as well. She has been admitted for and then transferred to intensive care unit for further medical management because of worsening of the respiratory status. She has been ordered the BiPAP, which has been started with adjustment of the BiPAP was made for this patient later on. This morning she was still noted significant anxious, also noted symptoms of shortness of breath, using some accessory muscle respiration, use of the BiPAP setting of 16/10 which was changed from 14/10 previously. She does admit symptoms of cough at times. Denies any symptoms of chest pain. The wheezing reported some. The history of the patient is extremely limited because of the current use of the BiPAP. REVIEW OF SYSTEMS: Cannot be effectively done because limitation ____ history from the patient more accurately. OTHER PAST HISTORY, SOCIAL AND FAMILY HISTORY AND SURGICAL HISTORY: Also reviewed the documentation by other physicians' notes. PAST MEDICAL HISTORY: 1. Reported history of chronic hypoxic respiratory failure requiring 4 liters of oxygen supplementation. 2. The patient with end-stage chronic obstructive pulmonary disease. 3. Gastroesophageal reflux. 4. Essential hypertension. 5. Hyperlipidemia. 6. Nicotine dependence. 7. History of overdose in the past with benzodiazepine and attempted suicide. 8. History of general anxiety disorder. PAST SURGICAL HISTORY: None reported by the patient. SOCIAL HISTORY: The patient states she is , has 3 children, lives at home. Denies history of alcohol use or illicit drugs. Tobacco use for the patient noted as a pack or more cigarettes per day since teens. FAMILY HISTORY: The patient's father of unknown complications. Mother at the age of 60-year-old with complications of COPD. MEDICATIONS: From home were listed for this patient as albuterol sulfate, [place], [place] REPORT OF CONSULTATION NAME: SAMEERA MATTHEWS UNIT #: [id number] ROOM: [facility] DOCTOR: LONG SH[facility]DS [facility] BIR[facility] [birth year] Norvasc, aspirin, Lipitor, vitamin D, Breo Ellipta, DuoNeb, lisinopril, lorazepam, Remeron, omeprazole, Daliresp. CURRENT MEDICATIONS: Which has been ordered administered for the patient actively during the hospitalization were noted as Lipitor, aspirin, Remeron, Solu-Medrol 40 mg b.i.d., Lovenox 40 mg subcutaneous daily, vitamin D, Daliresp, Norvasc, lisinopril, omeprazole, DuoNeb, Zithromax, Rocephin, lorazepam, and some other p.r.n. meds. DRUG ALLERGIES: NOTED ALLERGY TO PERCOCET. PHYSICAL EXAMINATION: GENERAL: A 64-year-old female patient currently noted without any acute distress. Height of 5 feet 7 inches, weight of 112 pounds, BMI 17.5. VITAL SIGNS: Noted as normal temperature, respiratory rate of 38-20. Heart rate of 100-98. Blood pressure 126/81 to 136/77, pulse ox saturation recorded on 3 liters nasal cannula 96% saturation. BiPAP 40% as 94-97% saturation. HEENT: Examination shows head was atraumatic. Eyes nonicterus. NECK: Supple. CARDIOVASCULAR: S1, S2 audible. LUNGS: The patient noted diffuse reduction in breath sounds with expiratory wheezing, which is moderate. ABDOMEN: Soft, nontender. Bowel sounds present. EXTREMITIES: The patient noted loss of muscle mass. MUSCULOSKELETAL: Without acute deformities. CENTRAL NERVOUS SYSTEM: The patient appears to be grossly intact, limited exam. LABORATORY DATA: The patient's CBC that was done yesterday, WBC count were noted as 7.7, hemoglobin and hematocrit normal, platelet count normal. The urine drug screen that was completed yesterday was noted as benzodiazepines greater than 200; otherwise, negative study. CBC that was done yesterday, normal BUN and creatinine. CO2 was 41, chloride of 89 and sodium 133. The troponin, which was cycled noted as normal study. Arterial blood gas 4 liters, pH of 7.29, pCO2 82, pO2 93 prior to use of the BiPAP at 5:35 a.m. The CMP this morning, normal BUN and creatinine, sodium 131. CO2 was 39. PT/PTT were noted normal this morning. CBC this morning was done was noted as essentially normal CBC. Arterial blood gas initial setting of BiPAP for the patient, 14/10, pH of 7.29, pCO2 of 82, pO2 93.9 with 40% oxygen. Lactic acid was normal. Chest x-ray, 1 view, which was done yesterday afternoon was noted without any acute pulmonary infiltration. Hyperinflation changes. IMPRESSION: 1. The patient who has been known with history of end-stage chronic obstructive pulmonary disease with chronic hypoxic respiratory failure currently developed, most likely acute on chronic hypercapnic respiratory failure because of the elevation of the CO2 level noted in the chemistry suggestive of chronic hypercarbia as well. 2. Chronic nicotine dependence. 3. Possibility acute bronchitis. There was no evidence of acute pneumonia. 4. The patient with BMI less than 18, most likely secondary to advanced chronic [place], [place] REPORT OF CONSULTATION NAME: SAMEERA MATTHEWS UNIT #: [id number] ROOM: [facility] DOCTOR: LONG [facility]DS [facility]: [birth year] obstructive pulmonary disease and cachexia possibility. 5. History of psychiatric problem noted with past suicidal attempt, generalized anxiety disorder and depression. PLAN OF MANAGEMENT: Continue Solu-Medrol. Continue bronchodilators that will be changed to albuterol sulfate. Continue current dose of Solu-Medrol. BiPAP setting has been changed, optimize the setting of 20/10 with adequate ventilation noted to improve the CO2 removal. Arterial blood gas was done after the current change. Further adjustment will be done accordingly. Keep the patient in Intensive Care Unit in case of worsening of the respiratory status occurred, nonresponding to the use of the bilevel treatment, intubation of mechanical ventilation to be considered. The patient noted full code. Other therapy, plan of management. Additional treatment changes will be made to the treatment based on progression of the current illness. Usual care. All other treatment, plan of management as well. DVT prophylaxis. Thanks for allowing me to participate in the care of this patient. MOMO ALVES MD CM:CONSTR:REPORT OF CONSULTATION 1616 06/26/19 1921 interface
--- NOTE | ~2019-06-25 | PR ---
[place], [place] PROGRESS NOTE NAME: SAMEERA MATTHEWS UNIT #: [id number] ROOM: 411 DOCTOR: LONG SHIELDS MD,MOMO BIRTHDATE: [birth year] DOS: 06/29/2019 SUBJECTIVE: The patient is noted comfortable at this time without any acute distress, using oxygen supplementation. Refused to use the BiPAP for the past 2 days consecutively. OBJECTIVE: VITAL SIGNS: For the patient this morning as the patient is sitting comfortably with normal temperature, respiratory rate 20, heart rate 100, blood pressure 161/95. Pulse oxygen saturation 2.5 liters nasal cannula 92% saturation. HEENT: Examination shows head was atraumatic. Eyes nonicterus. NECK: Supple. CARDIOVASCULAR: S1, S2 audible. LUNGS: The patient with moderate decreased breath sounds without any wheezing or crackles. ABDOMEN: Soft, nontender. Bowel sounds present. EXTREMITIES: Noted without any acute change. IMPRESSION: 1. Resolving acute on chronic hypercapnic respiratory failure. 2. Improving acute exacerbation of chronic obstructive pulmonary disease. 3. Refused to use of BiPAP. PLAN OF MANAGEMENT: The patient's BiPAP will be discontinued against medical advice since the patient not using that. Continue other medical management plan of care. Discharge planning could be start the patient possible consideration of transfer to Behavioral Health Unit if necessary. Steroid dose continue to be decreased gradually and progressively. MOMO ALVES MD CM:PNTRANS [id number] MOMO SHIELDS MD 06/29/19 1547 interface
--- NOTE | ~2019-06-25 | PR ---
[place], [place] PROGRESS NOTE NAME: SAMEERA MATTHEWS UNIT #: [id number] ROOM: [facility] DOCTOR: LONG SHIELDS MD,MOMO BIRTHDATE: [birth year] DOS: 06/28/2019 SUBJECTIVE: She has been noted comfortable at this time, resting in bed, using oxygen supplementation. Refused to use the BiPAP. There were no symptoms of fever or chills, coughing or any sputum expectoration stated by the patient. OBJECTIVE: VITAL SIGNS: For the patient, normal temperature, respiratory rate of 22, heart rate of 112-95, blood pressure 142/78 to 148/86. Pulse oxygen saturation on 3 liters nasal cannula 96% saturation recorded. HEENT: Examination shows head was atraumatic. Eyes nonicterus. NECK: Supple. CARDIOVASCULAR: S1, S2 is audible. LUNGS: The patient noted decreased breath in the lungs bilaterally without any wheezing or crackles. ABDOMEN: Soft, nontender. Bowel sounds present. EXTREMITIES: No acute change. IMPRESSION: Resolving acute exacerbation of chronic obstructive pulmonary disease, acute tracheobronchitis gradually progressively improving, acute hypercapnic and hypoxemic respiratory failure. PLAN OF TREATMENT: Decrease Solu-Medrol to 40 mg daily dose. May be transferred to the telemetry floor as well. Discharge planning could be started hopefully in the next 24-48 hours for this patient as well. All other therapy, plan of management in the meantime to be continued otherwise. MOMO ALVES MD CM:PNTRANS [id number] MOMO SHIELDS MD 06/28/192020 interface
--- NOTE | ~2019-06-25 | PR ---
[place], [place] PROGRESS NOTE NAME: SAMEERA MATTHEWS UNIT #: [id number] ROOM: 411 DOCTOR: LONG SHIELDS MD,MOMO BIRTHDATE: [birth year] DOS: 07/01/2019 PULMONARY PROGRESS NOTE SUBJECTIVE: She has been noted comfortable at this time, resting in the bed, using oxygen supplementation at 3 liters nasal cannula. Denies symptoms of fever, chills, coughing, sputum expectoration. OBJECTIVE: VITAL SIGNS: Normal temperature, respiratory rate of 18, heart rate of 87, blood pressure 140/80. The pulse oxygen saturation recorded as 96% saturation on nasal cannula. HEENT: Examination shows head was atraumatic. Eyes nonicterus. NECK: Supple. CARDIOVASCULAR: S1, S2 audible. LUNGS: Mild to moderate decreased breath sounds without any wheezing or crackles. ABDOMEN: Soft, nontender. Bowel sounds present. EXTREMITIES: No acute change. IMPRESSION: 1. Stable respiratory status was noted at the present time with improved significantly acute hypercapnic respiratory failure with suspected chronic hypercapnia. 2. Improving acute on chronic hypoxemic respiratory failure as well. 3. Resolving acute exacerbation of chronic obstructive pulmonary disease. 4. Multiple psychiatric problems. PLAN OF MANAGEMENT: No changes in the plan of care at this time. Continue current therapy as in progress. Discharge was planned to the psychiatric care for this patient in Behavioral Health Unit was pending. MOMO ALVES MD CM:PNTRANS [id number] MOMO SHIELDS MD 07/01/19 1556 interface
--- NOTE | ~2019-06-25 | CON ---
[place], [place] REPORT OF CONSULTATION NAME: SAMEERA MATTHEWS UNIT #: [id number] ROOM: [facility] DOCTOR: PHD ALLA FELIX BIRTHDATE: [birth year] DOS: 06/26/2019 HISTORY OF PRESENT ILLNESS: The patient is a 64-year-old female referred by the hospitalist to determine appropriateness of Behavioral inpatient psychiatric treatment. At the present time, the patient is in the ICU at [facility]. She presented to the ED with a panic attack having lost her last month. She was recently discharged from the [facility] on 06/02/2019 following an attempted suicide and also the of her . She has a history of alcohol abuse and she smokes cigarettes. She denied illegal drug use. PAST MEDICAL HISTORY: Anxiety, attempted suicide, chronic respiratory failure with hypoxia, COPD, depression, essential hypertension, GERD, hyperlipidemia, benzodiazepine overdose. MEDICATIONS: Lipitor, aspirin, Remeron, Ventolin, Solu-Medrol, Lovenox, vitamin D, Daliresp, Norvasc, Zestril, Prilosec, Zithromax, Rocephin, Ativan. PHYSICAL EXAMINATION: The patient was lying in bed, receiving a breathing treatment. She was awake, alert and oriented to person, place and time. Mood was anxious and depressed. Affect was blunted and tearful. She denied suicidal and homicidal ideation, plan, and intent. She states that she is struggling to live in a house that her built for them. She has overwhelming sense of anxiety and panic as well as depression and anger following her 's . She is thinking she is no longer capable of living independently and thinking of pursuing long-term placement. Speech was slow and soft. Expressive and receptive language were within normal limits conversationally. Thought process was linear and goal directed. There is no evidence of hallucinations or delusions. The patient is hoping to receive treatment on the [facility]. DIAGNOSES: Major depressive disorder, recurrent, severe without psychotic features; unspecified anxiety disorder. PLAN: The patient appears to be an appropriate candidate for the [facility]. She had been accepted, but had a medical emergency and was transferred to the medical floor. I consulted with Caitlin on the [facility]. Once medically stable, she would be an appropriate candidate for the [facility]. [place], [place] REPORT OF CONSULTATION NAME: SAMEERA MATTHEWS UNIT #: [id number] ROOM: [facility] DOCTOR: RONALD, PHD ALLA BIRTHDATE: [birth year] Margaret Felix, PhD CM:CONSTR:REPORT OF CONSULTATION 1751 06/26/19 2335 interface
--- NOTE | ~2019-06-25 | PR ---
[place], [place] PROGRESS NOTE NAME: SAMEERA MATTHEWS UNIT #: [id number] ROOM: [facility] DOCTOR: LONG SHIELDS MD,MOMO BIRTHDATE: [birth year] DOS: 06/27/2019 PULMONARY PROGRESS NOTE SUBJECTIVE: The patient is refusing to use the BiPAP at this time, using oxygen supplementation 2-3 liters nasal cannula this morning. Noted with anxiety and claustrophobia. Denies symptoms of headache or diplopia. Denies symptoms of chest pain, fever or chills. Denies symptoms of abdominal pain. Cough has been noted without any sputum expectoration. Remaining systems were reviewed, noted negative. PHYSICAL EXAMINATION: VITAL SIGNS: Normal temperature, respiratory rate 28-33, heart rate 100-99, blood pressure 160/98-140/70, pulse oxygen saturation on 2 liters nasal cannula 90% saturation. HEENT: Examination shows head was atraumatic. Eyes nonicterus. NECK: Supple. CARDIOVASCULAR SYSTEM: S1, S2 audible. LUNGS: Decreased breath sounds noted in the lungs bilaterally. There were no crackles. ABDOMEN: Soft, nontender. Bowel sounds present. EXTREMITIES: No new change. LABORATORY DATA: Arterial blood gas that was obtained today at 3 liters; pH of 7.41, pCO2 57, pO2 75.8. CBC this morning; WBC count normal, hemoglobin 11.8, platelet count normal. BMP this morning, normal BUN and creatinine. CO2 level noted as 36. Sodium 135. The patient had CTA of the chest that was done yesterday ordered by the primary care physician noted severe emphysematous changes without any pulmonary embolism. T11 compression fracture was noted, indeterminate age. IMPRESSION: 1. The patient with resolving acute severe hypercapnic and hypoxemic respiratory failure with acute exacerbation of chronic obstructive pulmonary disease. 2. Metabolic alkalosis, resolving. 3. Refusal to use the bilevel treatment at this time with history of general anxiety disorder and claustrophobia and other illnesses. 4. ____ noted with advanced chronic obstructive pulmonary disease. PLAN OF MANAGEMENT: At this time, continue the patient on oxygen supplementation. Monitor respiratory status with the BiPAP as agreeable for that. Other additional treatment changes will be ordered based on the progression of the illness. Supportive care, plan of treatment otherwise will be continued. [place], [place] PROGRESS NOTE NAME: SAMEERA MATTHEWS UNIT #: [id number] ROOM: [facility] DOCTOR: LONG SHIELDS MD,MOMO BIRTHDATE: [birth year] MOMO ALVES MD CM:PNTRANS [id number] MOMO SHIELDS MD 06/28/19 0023 interface
--- NOTE | ~2019-06-25 | PR ---
[place], [place] PROGRESS NOTE NAME: SAMEERA MATTHEWS UNIT #: [id number] ROOM: 411 DOCTOR: LONG SHIELDS MD,MOMO BIRTHDATE: [birth year] DOS: 06/30/2019 SUBJECTIVE: She has been noted at this time, sitting on the bed. The patient crying. Her recently in another hospital. She has not been reporting any symptoms of coughing, chest pain, shortness of breath continued to resolve. OBJECTIVE: VITAL SIGNS: Normal temperature, respiratory rate 18, heart rate 93, blood pressure 149/79. Pulse ox saturation recorded on 3 liters nasal cannula 92% saturation. HEENT: Examination shows head was atraumatic. Eyes nonicterus. NECK: Supple. CARDIOVASCULAR: S1, S2 is audible. LUNGS: The patient was noted without any wheeze or crackles. The breaths are noted decreased in the lungs bilaterally. ABDOMEN: Soft, nontender. Bowel sounds present. EXTREMITIES: No acute change. IMPRESSION: Stable respiratory status with improving acute hypercapnic and hypoxemic respiratory failure, exacerbation of chronic obstructive pulmonary disease. PLAN OF MANAGEMENT: No change in pulmonary standpoint. Continue the patient's current therapy, plan as in progress. Discharge planning was pending to Behavioral Health Unit. MOMO ALVES MD CM:PNTRANS [id number] MOMO SHIELDS MD 07/01/19 0110 interface
[~2019-06-25 21:23] MED LIST changes: +ATIVAN1 MG PO
[2019-06-25 21:45] VITALS: BP 144/69
--- NOTE | 2019-06-25 21:45 | NUR ---
A 64, admitted to , under the services of SEB Ortiz DO with a diagnosis of COPD. Chief complaint is SOB. Patient arrived via wheel chair from [place]. Monitor applied. Initial assessment completed. Vital signs taken and recorded. SEB ORTIZ DO notified of admission to the unit. Orders received. See assessment for past medical history, medications and allergies. Patient and/or family oriented to unit. [facility] visitation policy reviewed. Clothing/patient valuable form completed. AP MONTANO
--- NOTE | 2019-06-25 22:15 | NUR ---
MEDICATIONS REVIEWED WITH PAPERWORK SENT IN WITH PATIENT.
--- NOTE | 2019-06-25 22:30 | NUR ---
PATIENT DECIDED TO RECEIVED FLU SHOT.
--- NOTE | 2019-06-25 23:14 | NUR ---
DR. ALVES NOTIFIED OF CONSULT PER ORDER.
--- NOTE | 2019-06-25 23:35 | NUR ---
PT STARTED ON FLUTTER VALVE PER ORDER. PT HAS MINIMAL EFFORT BUT WILL CONTINUE WITH COACHING TO IMPROVE EFFORT.
[2019-06-26] VITALS: BP 115/63
--- NOTE | 2019-06-26 | NUR ---
PATIENT REFUSING TO BE CHECKED FOR SCABS ON HIP. STATED SHE WANTED TO BE LEFT ALONE AT PRESENT TIME.
--- NOTE | 2019-06-26 01:40 | NUR ---
SPOKE WITH MARCIA PENN AT [facility] REGARDING CONSULT ORDER.
--- NOTE | 2019-06-26 04:20 | NUR ---
DR. ALVES CALLED. RESPIRATIONS 32 AND PULSE OX 83 ON 2 LITERS. O2 INCREASED TO 4 LITERS . PULSE OX INCREASED TO 98%. ORDERS RECEIVED FROM DR. ALVES.
[2019-06-26 05:10] VITALS: BP 126/81
--- NOTE | 2019-06-26 05:10 | NUR ---
PT RECEIVED FROM WITH SOB. PT ALERT AND ORIENTED. HR 30'S. VSS.
--- NOTE | 2019-06-26 05:37 | NUR ---
ABG'S MECHE FROM LT WRIST ORDERED PER POLICY. ATIVAN GIVEN ORDERED AND BIPAP ALSO ON HCSPCUS01/10 40%. PT APPEARS RELAXED.
[2019-06-26 05:45] LABS: ABG BASE EXCESS 10.1 mmol/L (-2.0-2.0); ABG HCO3 39.5 mmol/l (22-26); ABG O2 SATURATION 96.4 % (95-97); ARTERIAL BLOOD GAS PH 7.296 (7.35-7.45); ARTERIAL BLOOD GAS PO2 93.4 mmHg (80-90)
[2019-06-26 05:48] LABS: ARTERIAL BLOOD GAS PCO2 83.6 mmHg (35-45)
--- NOTE | 2019-06-26 05:54 | NUR ---
DR ALVES NOTIFIED OF ABG'S. ORDERS RECEIVED. RESP DEPT HERE TO MAKE CHANGES.
--- NOTE | 2019-06-26 05:57 | NUR ---
BIPAP CHANGED FROM 14/07 TO 16/[address] LONG Vann.
[2019-06-26 06:51] LABS: HEMATOCRIT 40.7 % (37.0-47.0); HEMOGLOBIN 12.8 g/dl (12.0-16.0); MEAN CELL VOLUME 93.1 fl (81.0-99.0); MEAN CORPUSCULAR HGB 29.3 pg (27.0-31.0); MEAN CORPUSCULAR HGB CONC 31.4 g/dl (33.0-37.0); MEAN PLATELET VOLUME 10.1 fl (9.6-12.3); PLATELET COUNT AUTOMATED 255 10*3/uL (130-400); RED BLOOD COUNT 4.37 10*6/uL (4.10-5.10); RED CELL DISTRI WIDTH 12.8 % (0-14.5); WHITE BLOOD COUNT 7.1 10*3/uL (4.8-10.8)
[2019-06-26 07:07] LABS: ALBUMIN 3.2 gm/dl (3.1-4.5); ALKALINE PHOSPHATASE 80 U/L (45-117); BUN 7 mg/dl (7-24); CHLORIDE 90 mmol/L (98-107); CHOLESTEROL 140 mg/dL (<200); FREE T4 1.08 ng/dl (0.76-1.46); HDL CHOLESTEROL 60 mg/dl (40-60); LDL CHOLESTEROL 70 mg/dL (9-159); PHOSPHOROUS 3.9 mg/dL (2.5-4.9); POTASSIUM 4.2 mmol/L (3.5-5.1); SGOT/AST 13 IU/L (3-35); SGPT/ALT 13 U/L (12-78); SODIUM 131 mmol/L (136-145); TOTAL PROTEIN 6.7 gm/dL (6.4-8.2); TRIGLYCERIDES 48 mg/dl (<150); VLDL CHOLESTEROL 10 mg/dL (6-40)
[2019-06-26 07:11] LABS: THYROID STIM HORMONE (HS) 0.183 uIU/ml (0.358-4.75)
[2019-06-26 07:26] LABS: ACT PARTIAL THROMBO TIME 26.4 SECONDS (20.0-32.1); INTERNATIONAL NORM RATIO 0.9 (2.0-3.5)
[2019-06-26 07:45] LABS: PLATELET SUFFICIENCY NORMAL (NORMAL); TOTAL CELLS COUNTED 100 #CELLS
[2019-06-26 08:00] VITALS: BP 107/68
[2019-06-26 08:12] LABS: ABG BASE EXCESS 9.9 mmol/L (-2.0-2.0); ABG HCO3 39.4 mmol/l (22-26); ARTERIAL BLOOD GAS PH 7.296 (7.35-7.45); ARTERIAL BLOOD GAS PO2 93.9 mmHg (80-90)
[2019-06-26 08:14] LABS: ARTERIAL BLOOD GAS PCO2 82.6 mmHg (35-45)
--- NOTE | 2019-06-26 09:20 | NUR ---
HERE. BIPAP SETTINGS CHANGED. REPEAT ABG IN 2HR.
[2019-06-26 11:36] LABS: ABG BASE EXCESS 7.2 mmol/L (-2.0-2.0); ABG HCO3 34.5 mmol/l (22-26); ABG O2 SATURATION 97.4 % (95-97); ARTERIAL BLOOD GAS PCO2 65.1 mmHg (35-45); ARTERIAL BLOOD GAS PH 7.344 (7.35-7.45); ARTERIAL BLOOD GAS PO2 92.8 mmHg (80-90)
--- NOTE | 2019-06-26 11:45 | NUR ---
HERE TO SEE PATIENT.
--- NOTE | 2019-06-26 11:50 | NUR ---
CALLED WITH ABG RESULTS. ORDERS RECEIVED FOR THE PATIENT TO WEAR BIPAP AT ALL TIMES EXCEPT FOR MEALS.
[2019-06-26 12:00] VITALS: BP 148/88
--- NOTE | 2019-06-26 12:28 | NUR ---
PATIENT REMAINS VERY ANXIOUS AND TEARFUL. MEDICATED WITH ATIVAN PER PRN ORDER. WILL CONTINUE TO MONITOR.
[2019-06-26 16:00] VITALS: BP 122/69
--- NOTE | 2019-06-26 19:03 | NUR ---
24 HR chart check completed.
[2019-06-26 20:00] VITALS: BP 134/78
--- NOTE | 2019-06-26 23:15 | NUR ---
PT. USED BIPAP FOR 10 MIN. THEN WANTED OFF, PT. STATES SHE HAS THE RIGHT TO REFUSE ANY TX. AND SHE DOES NOT WISH TO USE THE BIPAP AT THIS TIME.
--- NOTE | 2019-06-26 23:17 | NUR ---
PATIENT REFUSING BIPAP, WORE FOR APPROX. 10MINS.
[2019-06-27] VITALS: BP 163/98
--- NOTE | 2019-06-27 04:00 | NUR ---
PATIENT REFUSED VITAL SIGNS.
[2019-06-27 04:52] LABS: HEMATOCRIT 36.2 % (37.0-47.0); HEMOGLOBIN 11.8 g/dl (12.0-16.0); MEAN CELL VOLUME 90.5 fl (81.0-99.0); MEAN CORPUSCULAR HGB 29.5 pg (27.0-31.0); MEAN CORPUSCULAR HGB CONC 32.6 g/dl (33.0-37.0); MEAN PLATELET VOLUME 9.7 fl (9.6-12.3); PLATELET COUNT AUTOMATED 261 10*3/uL (130-400); RED CELL DISTRI WIDTH 12.8 % (0-14.5); WHITE BLOOD COUNT 7.7 10*3/uL (4.8-10.8)
[2019-06-27 05:23] LABS: BUN 11 mg/dl (7-24); CHLORIDE 95 mmol/L (98-107); CREATININE 0.46 mg/dL (0.55-1.02); POTASSIUM 4.2 mmol/L (3.5-5.1); SODIUM 135 mmol/L (136-145)
[2019-06-27 05:27] LABS: PLATELET SUFFICIENCY NORMAL (NORMAL); TOTAL CELLS COUNTED 100 #CELLS
--- NOTE | 2019-06-27 07:25 | NUR ---
Shift chart check completed.24 HR chart check completed.
[2019-06-27 08:00] VITALS: BP 140/70
--- NOTE | 2019-06-27 08:05 | NUR ---
ON ASSESSMENT PT IS ALERT, ORIENTED, FLAT AFFECT. MOIST,CONGESTED, NON-PRODUCTIVE COUGH. ROOM AIR WITH PO2 OF 95%. SEE ALL APPROPRIATE INTEREVENTIONS.
--- NOTE | 2019-06-27 09:00 | NUR ---
patient will return to [facility] for treatment when medically stable, talked with [facility] staff and they have accepted patient when medically stable
--- NOTE | 2019-06-27 09:20 | NUR ---
DR ALVES VISITED. DR TURNER HAS VISITED. EVERY PHYSICIAN IS STRESSING IMPORTANCE OF USING BIPAP.
--- NOTE | 2019-06-27 09:48 | NUR ---
ATIVAN BY MOUTH FOR ANXIETY.
--- NOTE | 2019-06-27 10:00 | NUR ---
ABG'S LEFT RADIAL FOLLOWING P/P BY DR JOHNSON.
[2019-06-27 10:18] LABS: ABG BASE EXCESS 9.8 mmol/L (-2.0-2.0); ABG O2 SATURATION 95.3 % (95-97); ARTERIAL BLOOD GAS PCO2 57.2 mmHg (35-45); ARTERIAL BLOOD GAS PH 7.413 (7.35-7.45); ARTERIAL BLOOD GAS PO2 75.6 mmHg (80-90)
[2019-06-27 12:00] VITALS: BP 142/78
--- NOTE | 2019-06-27 12:27 | NUR ---
DR ALVES AWARE OF ABG RESULTS OF THIS AM WITH NO NEW ORDERS.
--- NOTE | 2019-06-27 13:21 | NUR ---
PT REMAINED ANXIOUS AND FRETFUL IN SPITE OF EARLIER ATIVAN.
--- NOTE | 2019-06-27 14:17 | NUR ---
VISITOR AT BEDSIDE.
[2019-06-27 16:00] VITALS: BP 141/78
--- NOTE | 2019-06-27 16:12 | NUR ---
PT C/O INDIGESTION, REQUESTING "MYLANTA". DR JOHNSON NOTIFIED.
--- NOTE | 2019-06-27 17:01 | NUR ---
UP AND AMBULATORY IN ROOM, THEN TO RECLINER CHAIR AND SHE'S NOW DOZING THERE.
--- NOTE | 2019-06-27 17:18 | NUR ---
PT HAD MYLANTA EARLIER WITH NO FURTHER VOICED COMPLAINTS OF IINDEGESTION. SHE ORDERED A GREAT VARIETY OF FOOD FOR DINNER. MEDICATED NOW FOR HEADACHE WITH TYLENOL.
--- NOTE | 2019-06-27 18:30 | NUR ---
PT UPSET AND CRYING. SHE SPOKE TO SOMEONE ON THE PHONE AND NOW SHE'S UPSET.
--- NOTE | 2019-06-27 18:32 | NUR ---
MEDICATED WITH ATIVAN PO FOR ANXIETY.
--- NOTE | 2019-06-27 18:45 | NUR ---
PT GIVEN HER INHALER PER HER REQUEST.
[2019-06-27 20:00] VITALS: BP 125/78
--- NOTE | 2019-06-27 21:10 | NUR ---
PATIENT REFUSING TO WEAR BIPAP. SPO2 94% ON 3L NC. RN AWARE
--- NOTE | 2019-06-27 22:32 | NUR ---
PATEIENT VERY TALKATIVE TONIGH, NOT CRYING OR WEEPY. PATIENT STATES SHE IS BREATHING BETTER, DOES GET SHORT OF BREATH WITH EXERTION AND COUGH. PATIENT FELT BETTER BEING IN HER OWN SLEEPWEAR, DID NOT WANT TO GET A BATH. PATIENT LEFT WITH CALL LIGHT IN REACH.
[2019-06-28] VITALS: BP 150/88
--- NOTE | 2019-06-28 00:02 | NUR ---
PATIENT RESTLESS, STATES SHE CANT GET COMFORTABLE. JUST WANTS TO RELAX AND SLEEP. ATIVAN GIVEN. WILL MONITOR AND REASSESS.
--- NOTE | 2019-06-28 02:00 | NUR ---
PATIENT RESTING, NO SIGNS OF DISTRES. LESS RESTLESSNESS. ATIVAN EFFECTIVE.
[2019-06-28 04:00] VITALS: BP 128/78
[2019-06-28 06:07] LABS: ALBUMIN 2.9 gm/dl (3.1-4.5); ALKALINE PHOSPHATASE 62 U/L (45-117); BUN 8 mg/dl (7-24); CHLORIDE 95 mmol/L (98-107); POTASSIUM 3.9 mmol/L (3.5-5.1); SGOT/AST 7 IU/L (3-35); SGPT/ALT 9 U/L (12-78); SODIUM 136 mmol/L (136-145)
[2019-06-28 06:16] LABS: HEMATOCRIT 38.1 % (37.0-47.0); HEMOGLOBIN 12.1 g/dl (12.0-16.0); LYMPH # 0.7 10*3/uL (1.3-4.4); LYMPH % 11.3 % (27.0-41.0); MEAN CELL VOLUME 91.8 fl (81.0-99.0); MEAN CORPUSCULAR HGB 29.2 pg (27.0-31.0); MEAN CORPUSCULAR HGB CONC 31.8 g/dl (33.0-37.0); MEAN PLATELET VOLUME 9.9 fl (9.6-12.3); MONO # 0.3 10*3/uL (0.1-1.0); MONO % 4.1 % (3.0-9.0); NEUT # 5.4 10*3/uL (2.3-7.9); NEUT % 84.1 % (47.0-73.0); PLATELET COUNT AUTOMATED 253 10*3/uL (130-400); RED BLOOD COUNT 4.15 10*6/uL (4.10-5.10); RED CELL DISTRI WIDTH 13.2 % (0-14.5); WHITE BLOOD COUNT 6.4 10*3/uL (4.8-10.8)
[2019-06-28 08:00] VITALS: BP 142/78
--- NOTE | 2019-06-28 08:10 | NUR ---
AWAKE, ALERT, UNPLEASANT AND UN FRIENDLY, PT UPSET THAT MULTIPLE STAFF MEMBERS WERE IN HER ROOM -TO CHECK VITALS AND FOR ASSESSMENT, "DONT TALK TO ME ABOUT THAT MACHINE(BIPAP), IM NOT GONNA WEAR IT" PT ALSO C/O BEING COLD-THE FAN IS BLOWING DIRECTLY ON HER BUT SHE DOES NOT WANT IT OFF, LUNGS VERY DIMINISHED L>R, I/E WHEEZES A/P, REFUSES TO ORDER ANY BREAKFAST, ASSESSMENT COMPLETED
--- NOTE | 2019-06-28 11:30 | NUR ---
PO ATIVAN HAS BEEN EFFECTIVE FOR ANXIETY CONTROL
[2019-06-28 12:00] VITALS: BP 148/86
--- NOTE | 2019-06-28 12:33 | NUR ---
SISTER JOCE ( [phone]) CALLED IN AND WANTS TO TALK WITH PTS DOCS, WHEN SAMEERA WAS ASKED FOR PERMISSION FOR THIS, SHE STATED "NO" THAT HER SISTER JUST WANTS TO RUN EVERYTHING AND THAT SHE WILL MAKE HER OWN DECISIONS ABOUT HER OWN CARE
[2019-06-28 16:00] VITALS: BP 110/62
[2019-06-28 20:00] VITALS: BP 128/75
--- NOTE | 2019-06-28 21:16 | NUR ---
PT. ANXIOUS, GIVEN ATIVAN AT 2049 ORDERED, WILL CONTINUE TO MONITOR. SUNNY CARR RN
[2019-06-29] VITALS: BP 161/92
--- NOTE | 2019-06-29 00:12 | NUR ---
ATIVAN MINIMALLY EFFECTIVE.
--- NOTE | 2019-06-29 01:00 | NUR ---
PT. GIVEN ATIVAN AGAIN PER PT REQUEST FOR ANTI-ANXIETY MED. SUNNY CARR RN
--- NOTE | 2019-06-29 03:17 | NUR ---
pt. refuses bipap.
--- NOTE | 2019-06-29 03:26 | NUR ---
PT. SLEEPING, ATIVAN EFFECTIVE.
[2019-06-29 04:00] VITALS: BP 154/93
[2019-06-29 05:48] LABS: BUN 6 mg/dl (7-24); CHLORIDE 97 mmol/L (98-107); CREATININE 0.39 mg/dL (0.55-1.02); POTASSIUM 3.4 mmol/L (3.5-5.1); SODIUM 137 mmol/L (136-145)
[2019-06-29 08:00] VITALS: BP 161/95
--- NOTE | 2019-06-29 10:48 | NUR ---
Medicated with ativan po as ordered for complaints of anxiety and bad nerves.
--- NOTE | 2019-06-29 11:30 | NUR ---
ATIVAN EFFECTIVE FOR ANXIETY. RESTING WITH EYES CLOSED IN BED.
[2019-06-29 12:00] VITALS: BP 123/70
--- NOTE | 2019-06-29 14:30 | NUR ---
TRANSFERRED TO ROOM 411-1 VIA BED. REPORT GIVEN TO SHERRY PENN
--- NOTE | 2019-06-29 15:15 | NUR ---
REPORT RECIEVED FROM NORMA PENN.
[2019-06-29 16:00] VITALS: BP 128/69
[2019-06-29 20:00] VITALS: BP 153/78
[2019-06-30] VITALS: BP 139/88
[2019-06-30 06:23] LABS: BUN 8 mg/dl (7-24); CHLORIDE 98 mmol/L (98-107); CREATININE 0.43 mg/dL (0.55-1.02); POTASSIUM 3.5 mmol/L (3.5-5.1); SODIUM 139 mmol/L (136-145)
[2019-06-30 08:00] VITALS: BP 149/79
[2019-06-30 12:00] VITALS: BP 137/59
[2019-06-30 16:00] VITALS: BP 127/80
--- NOTE | 2019-06-30 17:14 | NUR ---
PT WILL RETURN TO [facility] FOR TREATMENT ON DISCHARGE.
[2019-06-30 20:00] VITALS: BP 143/81
--- NOTE | 2019-06-30 21:00 | NUR ---
C/O HEART BURN. CALLED , SAID SHE WOULD ORDER TUMS.
--- NOTE | 2019-06-30 21:20 | NUR ---
REFUSING TUMS. WANT MYLANTA ORDERED INSTEAD. NOTIFIED. SAID SHE WOULD CHANGE THE ORDER.
[2019-07-01] VITALS: BP 155/89
--- NOTE | 2019-07-01 04:10 | NUR ---
24 HR chart check completed.
--- NOTE | 2019-07-01 07:44 | NUR ---
Shift chart check completed.24 HR chart check completed. Patient asleep during bedside report.
[2019-07-01 08:00] VITALS: BP 163/86
[2019-07-01 08:15] VITALS: BP 140/80
--- NOTE | 2019-07-01 09:04 | NUR ---
ON ASSESSMENT PATIENT IS RESTING EASILY. SHE'S TACHYPNEIC AT REST BUT DENIES DYSPNEA. SHE'S ANXIOUS TO GO TO U.
[2019-07-01] MEDS ORDERED: AVPAK AZITHROM250 M1 PO (12:05)
[2019-07-01] MEDS ORDERED: PREDNISONE10 MG PO (12:05)
--- NOTE | 2019-07-01 12:19 | NUR ---
PT HAD ATIVAN FOR ANXIETY AT 0945 AND THIS IS "HELPING".
--- NOTE | 2019-07-01 14:23 | NUR ---
Pt requested to meet with this BALANCE WHEEL ARM BURNISHER-S. Pt stated that she was anxious and that she needed to talk with this medical underwriter in order to help calm pt. Pt was tearful as she spoke of her struggles since her [facility] discharge. Empathized and provided support to pt. Discussed discharge options with pt and assisted pt in problem solving. Pt shared that she feels overwhelmed with her life and decisions that need to be made. Again empathized with pt and informed pt that when pt transfers to [facility], pt and this medical underwriter will spend time determining what pt wants to focus on first working together for a solution. Pt spoke of her grief. Discussed this further.
--- NOTE | 2019-07-01 14:32 | NUR ---
U NOTIFIED PT IS READY FOR PICKUP
--- NOTE | 2019-07-01 14:44 | NUR ---
Discharge instructions reviewed with patient/family. Patient receptive and verbalizes understanding. Follow-up care arranged. Written instructions given to patient/family. BETSEY KELLEY
== END 2019-07-01 14:44 | disposition home health service (06) | DRG 871 ==
LOC: 4E 21:23 → ICCU 21:23 → 4E 06-26 04:36 → ICCU 06-26 04:43 → 4E 06-29 13:57
PROVIDERS: Hospitalist; Internal Medicine; Internal Medicine Critical Care Medicine; ADMIT Internal Medicine
PROC: 5A09357 Assistance with Respiratory Ventilation, Less than 24 Consecutive Hours, Continuous Positive Airway Pressure (ICD-10-PCS; principal; 2019-06-26)
DX: A41.9 Sepsis, unspecified organism (principal); J18.9 Pneumonia, unspecified organism; J96.22 Acute and chronic respiratory failure with hypercapnia; J96.21 Acute and chronic respiratory failure with hypoxia; J44.1 Chronic obstructive pulmonary disease with (acute) exacerbation; E87.1 Hypo-osmolality and hyponatremia; J44.0 Chronic obstructive pulmonary disease with (acute) lower respiratory infection; F33.2 Major depressive disorder, recurrent severe without psychotic features; E87.3 Alkalosis; Z68.1 Body mass index [BMI] 19.9 or less, adult; J20.9 Acute bronchitis, unspecified; F41.1 Generalized anxiety disorder; F40.240 Claustrophobia; R65.20 Severe sepsis without septic shock; R73.9 Hyperglycemia, unspecified; R63.6 Underweight; F10.10 Alcohol abuse, uncomplicated; D72.810 Lymphocytopenia; F13.10 Sedative, hypnotic or anxiolytic abuse, uncomplicated; K21.9 Gastro-esophageal reflux disease without esophagitis; I10 Essential (primary) hypertension; E78.5 Hyperlipidemia, unspecified; Z72.0 Tobacco use; Z71.6 Tobacco abuse counseling; Z91.5 Personal history of self-harm; Z82.5 Family history of asthma and other chronic lower respiratory diseases; Z83.3 Family history of diabetes mellitus; Z82.49 Family history of ischemic heart disease and other diseases of the circulatory system; Z88.6 Allergy status to analgesic agent; Z79.899 Other long term (current) drug therapy; Z91.19 Patient's noncompliance with other medical treatment and regimen

== ENCOUNTER 2019-07-01 14:58 | Inpatient (IN) | payer MEDICARE ==
[~2019-07-01] VITALS: Ht 170.1 cm; Wt 52.4 kg
--- NOTE | 2019-07-01 14:55 | NUR ---
PRAVEENSAMEERA Bernal a 64 year old F admitted via wheel chair from the OTHER as a voluntary admission. Arrived on unit at 1455. ALLERGIES: PERCOCET. Vital signs are: [id number]/69 SPO2 97% 3L O2. The client signed the following forms with stated understanding: Authorization For The Release of Medical Information, Clothing List, Consent to Voluntary Admission and Hospitalization, Consent and Release Forms/Receipt of Rights, Acknowledgement of Advance Directive Information, Behavioral Health Consent Form, and Informed Consent of Medications. Admitted under the services of Dr. SHENG GREENWOOD,[facility]. A search was conducted and hazardous articles were removed. Client was oriented to the unit. SHERIF OROZCO
[~2019-07-01 14:58] MED LIST changes: +AVPAK AZITHROM250 M1 PO; +PREDNISONE10 MG PO
[2019-07-01 15:09] VITALS: BP 153/69
[2019-07-01 15:11] VITALS: BP 153/69
--- NOTE | 2019-07-01 15:29 | NUR ---
DR. ALMONTE NOTIFIED OF NEW ADMISSION. CONSULT TO BE PUT UNDER DR. CHARLES.
[2019-07-01 19:45] VITALS: BP 141/68
--- NOTE | 2019-07-01 19:47 | NUR ---
24 HR chart check completed.
--- NOTE | 2019-07-01 22:06 | NUR ---
P-DEPRESSION, ANXIETY I-PROVIDE VERBAL INTERVENTION FOR EMOTIONAL SUPPORT. ADMINISTER MEDS, MONITOR SLEEP R-PT IS ALERT & ORIENTED X 4. DOES STATE THAT SHE IS DEPRESSED & ANXIOUS. UTILIZING O2. COMPLIANT TAKING MEDS. REQUESTED & MEDICATED WITH ATIVAN 1 MG PO @ 2108 FOR C/O ANXIETY & MAALOX @ 2108 FOR C/O UPSET STOMACH. P-CONTINUE TO MONITOR & PROVIDE PHYSICAL ASSISTANCE & EMOTIONAL SUPPORT NEEDED.
--- NOTE | 2019-07-01 22:47 | NUR ---
NOTIFIED DR SHERIDAN THAT CLIENT REQUESTING BREATING TREATMENT AND HOME MEDICATIONS NOT ORDERED. HE SAYS HE WILL ORDER.
--- NOTE | 2019-07-02 01:30 | NUR ---
DR GARZA ON UNIT TO SEE PT FOR MEDICAL MANAGEMENT.
--- NOTE | 2019-07-02 03:38 | NUR ---
MEDICATED WITH TYLENOL FOR C/O BACK PAIN 07/10. COMPLAINS HE CAN'T SLEEP. CLIENT CAN HARDLY HOLD EYES OPEN AND HAVING TROUBLE WITH EYE HAND COORDINATION GETTING MEDS INTO MOUTH. ORIENTED X'S 3 AT THIS TIME
--- NOTE | 2019-07-02 06:18 | NUR ---
ABRIL & AUDREY EFFECTIVE & PT HAS SLEPT QUIETLY PAST 2214
[2019-07-02 07:35] LABS: ALBUMIN 3.1 gm/dl (3.1-4.5); BUN 10 mg/dl (7-24); CHLORIDE 98 mmol/L (98-107); CHOLESTEROL 166 mg/dL (<200); CREATININE 0.45 mg/dL (0.55-1.02); POTASSIUM 3.8 mmol/L (3.5-5.1); SGOT/AST 13 IU/L (3-35); SGPT/ALT 17 U/L (12-78); SODIUM 139 mmol/L (136-145); TRIGLYCERIDES 100 mg/dl (<150); VLDL CHOLESTEROL 20 mg/dL (6-40)
[2019-07-02 07:37] LABS: ALKALINE PHOSPHATASE 61 U/L (45-117); HDL CHOLESTEROL 65 mg/dl (40-60); LDL CHOLESTEROL 81 mg/dL (9-159); TOTAL PROTEIN 6.2 gm/dL (6.4-8.2)
[2019-07-02 07:41] VITALS: BP 158/75
--- NOTE | 2019-07-02 08:29 | NUR ---
Treatment Plan meeting with Dr. Leone, RN, AT, SW and Clerk Cashier. Plan for discharge Next week. Pt. is unsure at this time if she would go to SNF or return home.
--- NOTE | 2019-07-02 08:33 | NUR ---
DR. MOORE MADE AWARE OF PT BEING DISCHARGED TODAY
--- NOTE | 2019-07-02 10:19 | NUR ---
Individual counseling with pt this AM. Since pt's previous discharge on 06/02/19 from the [facility], this insurance underwriter and pt have had numerous phone conversations in regards to pt processing the of her . Topic of this session was to allow pt to express her grief and assess where pt is in the grief process. Pt was tearful throughout session. Pt shared about her last moments with her and that she feels guilt for not saying more or "the right things" to him. Empathized with pt and assisted pt in recognizing the importance of her presence with him - of holding his hand. Offered to pt to consider the wonderful gift that she provided to her - being with him so that he was not alone. Pt shook her head in agreement. Pt spoke of being angry at herself for not recognizing that her time with her was limited due to both of their health problems. Discussed this further. Pt was able to recognize that due to both of their illnesses, most of their energy was placed on basic survival needs, which did not permit them to give of themselves to each other. Pt spoke of a small shrine that she made for her consisting of his obituary, a letter that he had written in the past, and a small heart that she had originally placed on a birdhouse. Discussed pt's previous grief experiences. Confirmed to pt that grief is very individualized and that pt's grief is still very new. Discussed journaling. Pt is receptive to this. Discussed this further and offered some guidelines to pt. Pt has accepted the reality that her is . Pt continues to process her emotions. Pt discussed anger, guilt, and sadness during this session. Pt was able to recognize that she needs time to grieve. Explored discharge options with pt at end of session. Tentative plan is for pt to discharge to a SNF, which will allow pt to get stronger physically while continuing to process her loss. Pt was albe to verbalize that she wants to get better and feel better.
--- NOTE | 2019-07-02 11:42 | NUR ---
AM GROUP/LEISURE INTERESTS PT ATTENDED MORNING GROUP THERAPY AND PARTICIPATED BY WORKING WITH COLORED PENCILS. PT WAS ON TASK AND ABLE TO EXPRESS SADNESS OVER MEMORIES OF HER WHO JUST PASSED. PT EXPRESSED NO ANXIETY EXCEPT OF BILLS THAT WILL BE DUE WHILE SHE IS HERE.
--- NOTE | 2019-07-02 14:08 | NUR ---
Per patient's request, phoned pt's friend Milton and left her a voicemail message. Await return call.
--- NOTE | 2019-07-02 15:38 | NUR ---
PM GROUP PT ATTENDED AFTERNOON GROUP THERAPY AND PARTICIPATED BY DOING SEVERAL ACTIVITIES. PT WAS A LITTLE BRIGHTER THIS AFTERNOON COMPARED TO THE MORNING. PT EXPRESSED NO ANXIETY WHILE IN GROUP. PT WAS TALKATIVE AND ON TASK.
[2019-07-02 19:07] VITALS: BP 123/66
--- NOTE | 2019-07-02 19:10 | NUR ---
PT DEMANDING AND REPETITIVE AT THIS TIME. C/O THAT HER ROOMMATE MAKES HER BATHROOM SMELL LIKE PEE. PT'S ROOM AND BATHROOM CLEANED. PT STATES "I CAN'T EVEN WASH MY HANDS BECAUSE HER STUFF IS EVERYWHERE". PT EDUCATED ON SHARED SPACES, PT'S ROOMMATE'S BELONGINGS IN CLOSET WHERE THEY BELONG. PT IRRITABLE. STATES SHE IS STILL GRIEVING THE LOSS OF HER . PROVIDED WITH EMOTIONAL SUPPORT. WILL CONTINUE TO PROVIDE EMOTIONAL SUPPORT NEEDED. Q15 MIN MONITORING PER POLICY.
--- NOTE | 2019-07-02 21:09 | NUR ---
NO ADVERSE MOODS OR BEHAVIORS NOTED THIS SHIFT. ALERT AND ORIENTED X3. MOOD STABLE, PLEASANT. INTERACTIVE WITH PEERS AND STAFF. MEDICATION COMPLIANT, EDUCATION PROVIDED ON EACH MED. DENIES SI/HI, INTENT OR PLAN, HALLUCINATIONS, DELUSIONS OR PAIN. NO S/S OF INTERACTING WITH INTERNAL STIMULI. NO DELUSIONAL THOUGHT PROCESS NOTED. NO S/S OF DISTRESS NOTED. RESPS EVEN AND UNLABORED ON 3L NC, SOB AT TIMES WHILE TALKING. GAIT STEADY WHILE AMBULATING. REFUSED HS SNACK. PT STATED "MY DAY WAS REALLY GOOD. YOU KNOW HOW SISTERS GET, SHE GOT ON MY NERVES A LITTLE TODAY. OTHER THAN THAT IT WAS A GOOD DAY. I AM GLAD TO BE AROUND PEOPLE, IT REALLY HELPS". Q15 MINUTE CHECKS MAINTAINED FOR SAFETY. MONITOR SLEEP.
--- NOTE | 2019-07-02 23:28 | NUR ---
24 HR chart check completed.
--- NOTE | 2019-07-03 05:08 | NUR ---
PT MONITORED ON Q15 MINUTE SAFETY CHECKS THROUGHOUT THE NIGHT. PT NOTED TO HAVE SLEPT APPROXIMATELY 7 HOURS THROUGHOUT THE NIGHT.
[2019-07-03 07:23] VITALS: BP 144/70
--- NOTE | 2019-07-03 11:12 | NUR ---
PT C/O RIGHT WRIST AND FOREARM PAIN. PT MEDICATED WITH TYLENOL 650 MG PO PRN PER ORDERS. WILL CONTINUE TO MONITOR.
--- NOTE | 2019-07-03 11:26 | NUR ---
Discharge Plan remains for patient to Discharge Next week. Pt. wants to go to [facility].
--- NOTE | 2019-07-03 11:43 | NUR ---
AM GROUP PT ATTENDED MORNING GROUP THERAPY AND PARTICIPATED BY PLAYING CARDS WITH PEERS. PT EXPRESSED NO ANXIETY WHILE IN GROUP BUT WAS TEARFUL WHEN A PEER WAS DISCHARGED.
--- NOTE | 2019-07-03 14:29 | NUR ---
PHYSICAL THERAPY Physical therapy evaluation attempted. Patient not available for evaluation at this time, as she is getting her nails done in group activity. Will attempt PT evaluation at a later time/date. Thank you. Coleen Renee,PT,DPT
--- NOTE | 2019-07-03 14:30 | NUR ---
Patient not available for OccupationalTherapy evaluation as she was getting her nails done in group therapy. OTR will recheck at a later date. Luann Torres OTR/l
[2019-07-03 19:16] VITALS: BP 113/65
--- NOTE | 2019-07-03 23:33 | NUR ---
P-ISOLATIVE, TEARFUL. PATIENT ALERT AND ORIENTED. PATIENT DENIES SUICIDAL OR HOMICIDAL IDEATIONS AT THIS TIME. PATIENT WITH NO HALLUCINATIONS OR DELUSIONS. PATIENT WITH NO RESPIRATORY DISTRESS. PATIENT CONTINUES ON O2 AT 3L CONTINUOUS VIA NASAL CANNULA WITHOUT DIFFICULTY. I-REDIRECTION WITH 1:1 THERAPEUTIC INTERVENTIONS. EDUCATE AND ENCOURAGE MEDICATION COMPLIANCE. R-PATIENT SHORT OF BREATH ON EXERTION INTERMIITENTLY THROUGHOUT SHIFT. PATIENT TAKING FREQUENT REST PERIODS. PATIENT TEAFUL WHEN TALKING ABOUT BEING ADMITTED BACK TO THE UNIT. PATIENT STATING "I'M STILL TRYING TO GRIEVE. IT WAS SO HARD TO GO BACK HOME AND START GOING THROUGH EVERYTHING. PEOPLE HELPED IN THE BEGINNING, BUT THEY EVENTUALLY HAD TO GO TO WORK AND I ENDED UP ALONE. I JUST DON'T WANT TO FEEL THIS WAY". PATIENT OFFERED EMOTIONAL SUPPORT. THIS NURSE AND PATIENT DISCUSSED WHAT PATIENT PLANS ARE FOR DISCHARGE AND PATIENT VERBALIZED, "I THINK I AM GOING TO GO TO A [facility] FOR SKILLED SERVICES. PHYSICAL THERAPY CAME TODAY, BUT THEY DIDNT SEE ME AND OCCUPATIONAL THERAPY CAME WHEN I WAS IN GROUP AND WERE SUPPOSED TO COME BACK. PATIENT MEDICATION COMPLAINT AT HS. P-CONTINUE TO ENCOURAGE MEDICAION COMPLIANCE, ENCOURAGE GROUP THERAPY WHILE AWAKE
--- NOTE | 2019-07-04 00:57 | NUR ---
24 HR chart check completed. PATIENT REQUEST TYLENOL FOR GENERALIZED DISCOMFORT. MEDICATION WITH EFFECTIVE RESULT AT THIS TIME
--- NOTE | 2019-07-04 06:49 | NUR ---
PATIENT SLEPT 6 HOURS OF INTERRUPTED SLEEP THROUGHOUT SHIFT. Q 15 MINUTE CHECKS MAINTAINED
--- NOTE | 2019-07-04 07:55 | NUR ---
PHYSICAL THERAPY Physical therapy evaluation attempted, patient stated "I am getting ready then eating breakfast". PT will attempt skilled PT evaluation at a later time/date. Thank you, Carolyn Leal,SPT Coleen Renee,PT,DPT
--- NOTE | 2019-07-04 07:55 | NUR ---
Patient not available for OT evaluation as she was performing hygiene. Luann Torres OTR/l
[2019-07-04 08:00] VITALS: BP 145/74
--- NOTE | 2019-07-04 08:04 | NUR ---
DR MCCAULEY ON UNIT TO ASSESS PT.
--- NOTE | 2019-07-04 08:41 | NUR ---
Patient not available for occupational therapy evaluation as she was eating breakfast and with dietary. Luann Torres OTR/l
--- NOTE | 2019-07-04 10:35 | NUR ---
Treatment Plan meeting with Dr. Leone, RN, AT, SW and Photo Equipment Technician. Plan for discharge Next week. Plan is for patient to go to SNF short Term for strengthening. Patient has requested referral to [facility].
--- NOTE | 2019-07-04 10:45 | NUR ---
PHYSICAL THERAPY Physical therapy evaluation completed. Full details and evaluation to follow. Low complexity skilled PT evaluation completed ([id number]). PT will work on strength, balance, endurance, safety, and gait per POC. Recommend SNF upon discharge. Thank you, Carolyn Leal,SPT Coleen Renee,PT,DPT
--- NOTE | 2019-07-04 10:48 | NUR ---
Occupational Therapy evaluation completed on 3 with full eval to follow. Precautions include fall risk, 3N unit precautions, 3LPM oxygen needs continuously,impaired activity tolerance, SOB with min exertion, low complexity level 19918 via chart review, testing and evaluation. Recommend OT per pOC and SNF to enable return home alone at independent level. Thank you. Luann Torres OTR/l
--- NOTE | 2019-07-04 11:40 | NUR ---
AM GROUP PT ATTENDED MORNING GROUP THERAPY AND PARTICIPATED BY COLORING, JOURNALING AND SOCIALIZING WITH NURSING STUDENTS. PT EXPRESSED NO SUICIDAL IDEATIONS WHILE IN GROUP. PT HAD ONE TEARFUL EPISODE DUE TO A SONG THAT REMINDED HER OF DANCING WITH HER . PT WAS THANKFUL FOR SUCH A WONDERFUL MEMORY
--- NOTE | 2019-07-04 12:21 | NUR ---
PT C/O PAIN IN ARMS. RATED 9 OUT OF 10 PAIN. REQUESTED TYLENOL. PRN TYLENOL GIVEN AT THIS TIME. WILL MONITOR EFFECTIVENESS OF MEDICATION.
--- NOTE | 2019-07-04 15:11 | NUR ---
Pt tearful this afternoon when meeting with this copywriter. Pt had been journaling and when she wrote about her cat that is in a [facility], pt began to cry. Pt then stated that she realized that she has lost everything. Pt was sobbing at this time. Empathized with pt, allowed pt to express her emotions, and offered support. Assisted pt in recognizing that she has people who care about her and love her. Additional time spent assisting pt in processing her emotions. Pt requested that she be moved from the end of the olivia because she feels alone there. Confirmed with nursing that pt can move to a room closer to nursing station. Pt stated that she is feeling anxious about the weekend. Discussed this further. After meeting, placed self-affirmation sheets on pt's wall of her room and near the mirror in her bathroom to assist pt in having positive thoughts.
--- NOTE | 2019-07-04 15:50 | NUR ---
PASRR completed online in [facility]. Requires further review for Nursing Facility Placement. Faxed Supporting Documentation to [facility] for Further Review. Copy Placed in Chart.
[2019-07-04 19:08] VITALS: BP 133/69
--- NOTE | 2019-07-04 22:32 | NUR ---
P-ISOLATIVE. PATIENT ALERT AND ORIENTED. PATIENT DENIES SUICIDAL OR HOMICIDAL IDEATIONS AT THIS TIME. PATIENT WITH NO HALLUCINATIONS OR DELUSIONS. PATIENT WITH NO RESPIRATORY DISTRESS. PATIENT CONTINUES ON O2 AT 3L CONTINUOUS VIA NASAL CANNULA WITHOUT DIFFICULTY. I-REDIRECTION WITH 1:1 THERAPEUTIC INTERVENTIONS. EDUCATE AND ENCOURAGE MEDICATION COMPLIANCE. R-PATIENT OFFERED NOURISHMENT AND FLUIDS THIS SHIFT. PATIENT REFUSED HS SNACK BUT DRANK FLUIDS. PATIENT SHORT OF BREATH ON EXERTION INTERMITTENTLY THROUGHOUT SHIFT. PATIENT TAKING FREQUENT REST PERIODS. PATIENT INTERACTING WITH PEERS IN DINING AREA. PATIENT MEDICATION COMPLIANT AT HS. PATIENT REQUEST TYLENOL 650MG FOR COMPLAINT OF HEADACHE. TYLENOL WITH EFFECTIVE RESULTS AT THIS TIME P-CONTINUE TO ENCOURAGE MEDICATION COMPLIANCE, ENCOURAGE GROUP THERAPY WHILE AWAKE
--- NOTE | 2019-07-05 06:02 | NUR ---
PATIENT SLEPT 8 HOURS OF INTERRUPTED SLEEP THROUGHOUT SHIFT. Q 15 MINUTE CHECKS MAINTAINED
[2019-07-05 08:00] VITALS: BP 144/84
--- NOTE | 2019-07-05 08:00 | NUR ---
Patient resting quietly with no c/o discomfort. Respirations easy and regular. Vital signs stable. No overt distress. GIVENS,DEMI
--- NOTE | 2019-07-05 12:01 | NUR ---
AM/JOURNALING/LEISURE SKILLS PT ATTENDED AND PARTICIPATED IN GROUP. PT TEARFUL AT TIMES BUT EASILY CHEERS UP AND IS BACK ON TASK. PT SOCIAL AND UTILIZES HUMOR TO COPE. PT DID NOT EXPRESS ANY ANXIETY AT THIS TIME BUT DID EXPRESS GRIEF THROUGH SHARING STORIES OF . PT WILL CONTINUE TO ATTEND AND PARTICIPATE IN FUTURE GROUP SESSIONS.
--- NOTE | 2019-07-05 12:29 | NUR ---
MARY FROM [facility] IS HERE TO ASSESS PT.
--- NOTE | 2019-07-05 15:31 | NUR ---
The patient has no complaints and is resting comfortably. DEMI COOK
--- NOTE | 2019-07-05 15:58 | NUR ---
PM/MUSIC/LEISURE SKILLS PT ATTENDED AND PARTICIPATED BUT DID EXPRESS GRIEF AND FRUSTRATION AT TIMES. PT CRUMPLED UP A PAPER WITH A QUOTE TO COLOR THAT WAS TRIGGERING HER RATHER THAN SOOTHING. PT BEGAN TO PLAY SOLITAIURE AND SOCIALIZE WHICH HELPED IN CALMING PT. PT WILL CONTINUE TO ATTEND AND PARTICIPATE IN FUTURE GROUP SESSIONS.
[2019-07-05 20:00] VITALS: BP 107/67
--- NOTE | 2019-07-05 23:00 | NUR ---
P-ISOLATIVE. PATIENT ALERT AND ORIENTED. PATIENT DENIES SUICIDAL OR HOMICIDAL IDEATIONS AT THIS TIME. PATIENT WITH NO HALLUCINATIONS OR DELUSIONS. PATIENT WITH NO RESPIRATORY DISTRESS. PATIENT CONTINUES ON O2 AT 3L CONTINUOUS VIA NASAL CANNULA WITHOUT DIFFICULTY. I-REDIRECTION WITH 1:1 THERAPEUTIC INTERVENTIONS. EDUCATE AND ENCOURAGE MEDICATION COMPLIANCE. R-PATIENT OFFERED NOURISHMENT AND FLUIDS THIS SHIFT. PATIENT REFUSED HS SNACK BUT DRANK FLUIDS. PATIENT SHORT OF BREATH ON EXERTION INTERMITTENTLY THROUGHOUT SHIFT. PATIENT TAKING FREQUENT REST PERIODS. PATIENT INTERACTING WITH PEERS IN DINING AREA. PATIENT MEDICATION COMPLIANT AT HS. P-CONTINUE TO ENCOURAGE MEDICATION COMPLIANCE, ENCOURAGE GROUP THERAPY WHILE AWAKE
--- NOTE | 2019-07-06 05:50 | NUR ---
24 HR chart check completed.
--- NOTE | 2019-07-06 05:52 | NUR ---
PT SLEPT 7 HOURS
--- NOTE | 2019-07-06 07:34 | NUR ---
CALL PLACED TO NUMBER [phone]. SPOKE TO DR ALMONTE. dR NOT IN HOSPITAL AT THIS TIME AND NUMBER NOT FORWARDED AT THIS TIME. STATED HE WOULD LET THE TEAM KNOW ABOUT SAMEERA'S [facility] FALLING OFF AND PT IS REQUESTING A BREATHING TREATMENT. RESPIRATORY THERAPY CALLED AND REQUESTED A PRN BREATHING TREATMENT. RESPIRATORY STATED IT WILL BE 10 MINUTES.
[2019-07-06 07:50] VITALS: BP 130/79
--- NOTE | 2019-07-06 11:46 | NUR ---
PT CAME TO THIS NURSE AND ASKED FOR A BREATHING TREATMENT. LUNGS CLEAR, SPO2 94%. NO DISTRESS OR SOB NOTED. EXPLAINED TO PT ER BREATHING TREATMENTS ARE Q8 HOURS. THIS NURSE CALLED DR JOHNSTON AND SPOKE TO HIM REGARDING PT'S COMPLAINT. DR JOHNSTON STATED HE WOULD LOOK AT HER MEDICATIONS HOWEVER IF PT HAS NO DISTRESS, SOB, OR WHEEZING THE PT DOES NOT NEED A TREATMENT NOW. AFTER THIS NURSE GOT OFF THE PHONE WITH THE PT WAS NOTED TO BE UP AND DANCING IN THE DININGROOM.
--- NOTE | 2019-07-06 12:39 | NUR ---
PT COMPLAINING ABOUT AMOUNT OF FOOD SHE IS RECEIVING AND REFUSING SMALL SNACKS INBETWEEN MEALS. PT ALSO COMMENTING TO OTHER PATIENTS THAT THE NURSES AND DOCTORS ARE SABATOGING HER WITH HER BREATHING TREATMENTS. THIS NURSE EXPLAINED PRN BREATHING TREATMENT TO HER AND GAVE THE PT A COPY OF HER EMAR WITH TIMES ON IT SHOWING HOW OFTEN SHE GETS BREATHING TREATMENTS AND PREVIOUS TIMES THE PATIENT HAS RECEIVED THEM TODAY. PT VERBALIZED UNDERSTANDING.
--- NOTE | 2019-07-06 16:09 | NUR ---
Patient resting quietly with no c/o discomfort. Respirations easy and regular. Vital signs stable. No overt distress. GIVENS,DEMI
--- NOTE | 2019-07-06 18:52 | NUR ---
PT REUESTED ADDITIONAL MEDICATION FOR NERVES. THIS NURSE CALLED MARIAM RANGEL AND REQUESTED SOMETHING FOR THE PT. CLAIRE GAVE AN ORDER FOR VISTARIL 25MG TID PRN. PT HAS HAD PERIODS OF ANXIOUSNESS AND TEARFULLNESS THROUGHOUT THE DAY. PRN VISTARIL GIVEN AT APPROXIMATELY 1830. WILL MONITOR EFFECTIVENESS OF MEDICATION.
[2019-07-06 20:00] VITALS: BP 119/67
--- NOTE | 2019-07-06 20:00 | NUR ---
P-ISOLATIVE. PATIENT ALERT AND ORIENTED. PATIENT DENIES SUICIDAL OR HOMICIDAL IDEATIONS AT THIS TIME. PATIENT WITH NO HALLUCINATIONS OR DELUSIONS. PATIENT WITH NO RESPIRATORY DISTRESS. PATIENT CONTINUES ON O2 AT 3L CONTINUOUS VIA NASAL CANNULA WITHOUT DIFFICULTY. I-REDIRECTION WITH 1:1 THERAPEUTIC INTERVENTIONS. EDUCATE AND ENCOURAGE MEDICATION COMPLIANCE. R- PATIENT SHORT OF BREATH ON EXERTION INTERMITTENTLY THROUGHOUT SHIFT. PATIENT AMBULATING WITH STEADY GAIT. PATIENT INTERACTING WITH PEERS IN DINING AREA. PATIENT MEDICATION COMPLIANT. P-CONTINUE TO ENCOURAGE MEDICATION COMPLIANCE, ENCOURAGE GROUP THERAPY WHILE AWAKE
--- NOTE | 2019-07-07 03:01 | NUR ---
24 HR chart check completed.
--- NOTE | 2019-07-07 06:24 | NUR ---
PATIENT SLEPT 6 HOURS INTERRUPTED SLEEP THROUGHOUT SHIFT. Q 15 MINUTE CHECKS MAINTAINED
--- NOTE | 2019-07-07 07:05 | NUR ---
PHYSICAL THERAPY Patient seen this am for therapy visit and was in her room near bed upon therapist arrival. OT assistant statistician was present for observation only during LEAD MINER visit as patient presented with continuous O2-3L via NC. Patient reported no new c/o's this morning and ambulates without AD, extended O2 hose, SBA to activity room, 100'x 1. Patient demonstrates "wobbly" gait pattern with decreased stride and needed several standing rest breaks secondary to increased SOB / fatigue. Patient instructed on purse lip breathing technique and was able to complete all gait with no LOB. Patient SpO2 checked at 90%,HR 110 bpm and following 45 second seated rest returned to near baseline. Patient remained at table in activity room under [facility] staff Supervision awaiting breakfast. Will continue per POC as tolerated, total treatment time 14 minutes. Jacob Granado, LEAD MINER
--- NOTE | 2019-07-07 07:26 | NUR ---
OT NOTE Pt was seen this A.M. 1:1 for 26 minutes with PLASMA PROCESSING CENTRIFUGE OPERATOR and nursing staff present for observation only. Upon arrival pt was sitting upright on the EOB. Pt presented to therapy with continuous 3L-O2 via NC which she remained on throughout the entire session. Pt completed sit to stand from bed level with CGA followed by functional mobility around the room with CGA while gathering ADL supplies. Pt then completed toileting task, doffed and donned pants and shirt with SBA, and stood sink side while washing her hands, face, and completing hair care. Throughout pt required multiple sitting rest breaks due to complaints of feeling SOB. Pt was educated on energy conservation techniques throughout. Functional mobility then completed to the dining room where she was left sitting upright under U staff supervision. Continue with rec D/ Cplan to SNF. CADEN Nix/Dianne
[2019-07-07 07:50] VITALS: BP 151/86
--- NOTE | 2019-07-07 10:31 | NUR ---
Spoke with Ayde at [facility]. Declined referral due to "Complex Needs that [facility] would not be able to meet" Per Ayde. Notified Maintenance Shop Manager who will speak to Patient concerning Alternate Placement Facilities.
--- NOTE | 2019-07-07 11:16 | NUR ---
DR. MCCAULEY ON UNIT TO ASSESS PT, UPDATE PROVIDED.
--- NOTE | 2019-07-07 11:59 | NUR ---
MIKE returns. Pt. is approved to enter Nursing facility for SNF. Will need to have patient pick a new facility since [facility] Declined.
--- NOTE | 2019-07-07 12:19 | NUR ---
AM GROUP NO AM GROUP THERAPY DUE TO NEW PT ASSESSMENTS AND 1:1
--- NOTE | 2019-07-07 13:38 | NUR ---
Spoke with Patient in Dining Area at the Table. Advised that [facility] had declined the referral. Offered alternate facility in the area close to [facility] and Pt. states that "[facility] would be ok". Notified Olga at [facility] and Referral was faxed to [facility] Attn: Olga [phone].
--- NOTE | 2019-07-07 15:29 | NUR ---
Individual time spent with pt this afternoon. Pt shared that she feels that she has experienced some setbacks. Discussed this further, provided support, and assisted pt in processing her thoughts. Discussed pt's grieving and pt shared some of her journaling. Pt also spoke of her tentative plan for discharge. Pt was tearful through most of this interaction. However, pt continues to voice hope for her future.
--- NOTE | 2019-07-07 15:52 | NUR ---
NO ADVERSE MOODS OR BEHAVIORS NOTED. PT ALERT TO PERSON, PLACE, TIME AND SITUATION. PT MED COMPLIANT WITHOUT DIFFICULTY, MED EDUCATION. PT PLEASANT, COOPERATIVE AND INTERACTIVE WITH STAFF AND PEERS. NO HALLUCINATIONS OR DELUSIONS NOTED. PT DENIES ANY SUICIDAL THOUGHTS. PT AMBULATORY THROUGHOUT UNIT, GAIT STEADY. PT CONTINENT OF BOWEL ADN BLADDER. PT REMAINS ON 3L O2 VIA NC. PLAN IS TO PROVIDE EMOTIONL SUPPORT AND 1:1 FOR PT TO VOICE FEELINGS, MONITOR PT BEHAVIORS ON Q15 MIN SAFETY CHECKS, ENCOURAGE MED COMPLIANCE AND PROVIDE MED EDUCATION.
--- NOTE | 2019-07-07 15:59 | NUR ---
PM GROUP PT ATTENDED AFTERNOON GROUP THERAPY AND PARTICIPATED BY WRITING IN HER JOURNAL. PT EXPRESSED NO ANXIETY OR SUICIDAL IDEATIONS WHILE IN GROUP.
[2019-07-07 19:43] VITALS: BP 110/61
--- NOTE | 2019-07-07 20:48 | NUR ---
EVENING/MUSIC TRIVIA/ART PT ATTENDED AND PARTICIPATED DURING GROUP. PT DID NOT EXPRESS ANY ANXIETY AT THIS TIME. PT WILL CONTINUE TO ATTEND AND PARTICIPATE IN FUTURE GROUP SESSIONS. PT PLEASANT AND ON TASK AT THIS TIME.
--- NOTE | 2019-07-07 21:55 | NUR ---
P--INSECURE, HOPELESS/HELPLESS I--WILI DOES WELL INTERACTING WITH PEERS AND STAFF. WEARS O2 ALL THE TIME. STATES HAD A GOOD DAY. DENIES ANY ISSUES R--I HAD A GOOD DAY. I JUST CAN'T TALK ABOUT MY MOOD AT NIGHT BECAUSE I THEN CAN'T SLEEP. I TALK ABOUT DURING THE DAY AND ITS FINE. I WILL CALL FOR YOU IF I CHANGE MY MIND P-MONITOR FOR CHANGES IN BEHAVIOR/MOOD. Q 15 MINUTE SAFETY CHECKS. BE AVAILABLE TO TALK AND PROVIDE SUPPORT
--- NOTE | 2019-07-08 05:44 | NUR ---
SLEPT WELL PAST 0030AM. MOVED SELF AROUND IN BED. NO DISTRESS NOTED.
--- NOTE | 2019-07-08 06:36 | NUR ---
CALLED RESP THERAPY AT CLIENTS REQUEST FOR BREATHING TX. CURRENTLY UP AT SINK DOING AM CARE. NC ON PER ORDERS
--- NOTE | 2019-07-08 07:20 | NUR ---
PHYSICAL THERAPY Patient seen this am following Respiratory breathing treatment and was sitting at table in activity room upon therapist arrival. OT marketing operations assistant was present for observation only during DAIRY FARM MANAGER visit this morning as patient reports no new c/o's at this time. Patient was pleasant, presenting with continuous O2-3L via NC and transfers sit to stand SBA. Patient ambulates SBA, > 200'x 1, demonstrating slow alejandra, decreased stride and no LOB. Patient returned to activity room chair at table awaiting breakfast and recorded SpO2 96%. Patient remained at table under [facility] staff Supervision and will continue per POC as tolerated. Total treatment time 14 minutes. Jacob Granado, DAIRY FARM MANAGER
--- NOTE | 2019-07-08 07:30 | NUR ---
OT NOTE Pt was seen this A.M. 1:1 for 15 minute OT session with PERSONAL CARE ASSISTANT and nursing staff present for observation only. Upon arrival pt was sitting upright in the dining room. Pt identified by name and and had complaints of increased fatigue. Pt presented to therapy with continuous 3L-O2 via NC which she remained on throughout the entire session. At rest pt's SpO2 was 94%. Pt completed sit to stand transfer from chair level with CGA for safety followed by functional mobility to her bedroom and back with CGA and use of hand rail for UE support due to bouts of unsteady gait. Challenged pt's dynamic standing tolerance needed for increased I in self care tasks and functional transfers, pt was able to tolerate aprox 5 minutes with a standing rest break after aprox 60 seconds due to fatigue and feeling SOB, SpO2 reading 96% . Pt was left sitting upright in the dining room under [facility] staff supervision. Continue with rec D/C plan to SNF. LATOSHA Nix
[2019-07-08 07:45] VITALS: BP 107/76; BP 122/80
--- NOTE | 2019-07-08 08:30 | NUR ---
Treatment Plan meeting with Dr. Leone, RN, AT, SW and Street Light Servicer Supervisor. Plan for discharge next week. Pt. is for short term Placement. PASRR completed. Referral faxed to [facility] yesterday.
--- NOTE | 2019-07-08 09:30 | NUR ---
Accepted at [facility] per Olga Mill Operator Head. Faxed Copy of PASRR and Letter to facility [phone]
--- NOTE | 2019-07-08 11:53 | NUR ---
AM GROUP/LESSONS FROM A TREE PT ATTENDED AND PARTICIPATED IN ALL GROUP ACITIVITES. PT WAS ON TOPIC AND CONTRIBUTED TO THE CONVERSATION AND GROUP DYNAMIC. PT EXPRESSED NO SUICIDAL IDEATIONS WHILE IN GROUP AND DEMONSTRATES GOOD COPING STRATEGIES.
--- NOTE | 2019-07-08 12:39 | NUR ---
ALERT AND ORIENTED TO PERSON, PLACE, TIME, AND SITUATION. STABLE MOOD. INTERACTIVE AND PARTICIPATING. CALM. DENIES SI. VERBALLY CONTRACTED FOR SAFETY INCASE SI ARISE. DENIES HALLUCIANTIONS AND DELUSIONS. MEDICATION COMPLIANT WITHOUT DIFFICULTY. MED EDUCATION PROVIDED. PLAN IS TO CONTINUE TO ENGAGE PT IN GROUP THERAPY. PROVIDE 1:1 FOR THERAPEUTIC COMMUNICATION. SEE [facility] FLOWSHEET FOR SPECIFIC MONITORING.
--- NOTE | 2019-07-08 15:43 | NUR ---
PM GROUP/LEISURE INTERESTS PT ATTENDED AFTERNOON GROUP THERAPY AND PARTICIPATED BY COLORING, PLAYING [employer] AND SOCIALIZING WITH PEERS. PT EXPRESSED NO SUICIDAL IDEATIONS WHILE IN GROUP NOR EXHIBITED ANY ANXIETY.
--- NOTE | 2019-07-08 15:59 | NUR ---
Individual time spent with pt this afternoon. Discussed pt's journaling and her current mood. Discussed discharge plan. Pt changed her mind and would like to discharge to [facility]. Informed pt that there are no beds available there. Pt stated that she does not want to go to [facility] or [facility]. Pt was tearful. Support provided. Discussed this further. Pt stated that she will need to discharge to a family member's home and receive home PT/OT. Per pt's request, left a message for pt's friend Milton informing her of the above information.
--- NOTE | 2019-07-08 18:14 | NUR ---
PT C/O INCREASED ANXIETY AND REQUESTED PRN VISTARIL. PRN GIVEN AT THIS TIME. WILL MONITOR EFFECTIVNESS OF MEDICATION.
[2019-07-08 19:43] VITALS: BP 100/69
--- NOTE | 2019-07-08 20:45 | NUR ---
HAD A GOOD BUT LONG DAY AND FEELING TIRED. CURRENTLY WRITING A LETTER IN BED. SHE DID HER PM CARE. STATES NO PROBLEMS OR ISSUES AT THIS TIME
--- NOTE | 2019-07-08 20:53 | NUR ---
EVENING PT ATTENDED AND PARTICIPATED DURING GROUP. PT CHOSE NOT TO PARTICIPATE IN POETRY ACTIVITY "YOURE MAKING ME USE MY BRAIN" PT PARTICIPATED IN TRIVIA PART OF ACTIVITY AND DISCUSSION. DAMIAN AFTER SNACK PT WENT TO ROOM TO LAY DOWN. PT WILL CONTINUE TO ATTEND AND APRTICIPATE IN FUTURE GROUP SESSIONS.
--- NOTE | 2019-07-09 00:37 | NUR ---
24 HR chart check completed.
--- NOTE | 2019-07-09 05:57 | NUR ---
SLEPT WELL PAST 2200PM WITH FEW INTERUPTIONS
--- NOTE | 2019-07-09 07:19 | NUR ---
OT NOTE Pt was seen this A.M. 1:1 for 19 minute OT session with BEAM BUILDER and nursing staff present for observation only. Upon arrival pt was sitting upright on the EOB. Pt identified by name and and had complaints of increased fatigue. Pt presented to therapy with continuous 3L-O2 via NC which she remained on throughout entire session. Pt completed functional mobility around the room with CGA due to unsteady gait while gathering clothing. Pt doffed and donned pants, shirt, and shoes with SBA while seated due to feeling SOB when standing. Functional mobility then completed from the bedroom to the dining room with CGA and use of hand rail for UE support. Pt required multiple standing rest breaks throughout due to fatigue and feeling SOB, pt's SpO2 was 94%. Pt was left sitting upright in the dining room under [facility] staff supervision. Continue with rec D/C plan to SNF. CADEN Nix/Dianne
[2019-07-09 07:37] VITALS: BP 138/62
--- NOTE | 2019-07-09 07:56 | NUR ---
PHYSICAL THERAPY Patient seen this am for therapy visit and was sitting on EOB in her room upon therapist arrival. OT autopsy assistant was present for observation only this morning as patient presented with continuous O2-3L via NC. Patient reports no new c/o's and is Independent with all transfers. Patient ambulates CARDING MACHINE FEEDER/CGA, 150'x 1, demonstrating very slow alejandra and bouts of "wobbly" gait pattern secondary to increased SOB / fatigue. Patient needed several standing rest breaks with v/c for purse lip breathing technique to complete all gait activity safely. Patient SpO2 following gait was 94%, HR 112 bpm. Patient returned to activity room and remained in chair at table under [facility] staff Supervision. Will continue per POC as tolerated, total treatment time 14 minutes. Jacob Granado, EXECUTIVE DIRECTOR GLOBAL BRAND MARKETING
--- NOTE | 2019-07-09 08:00 | NUR ---
Treatment Plan meeting with Dr. Leone, RN, AT, and Order Schedule Clerk. Plan for discharge at the end of the week or next week. Dr. Leone has asked for [facility] to Have DON reconsider Referral. Pt. has states she does not want to go to [facility]. Message to [facility] at [place] to notify that Dr. Leone would like to speak with the flexo press operator John. Messer the Impress Associate states that she will have Dale Call Dr. Leone. Will Follow.
--- NOTE | 2019-07-09 10:44 | NUR ---
Spoke with Ayde at [facility], Dale the structures mechanic reviewed the Referral for Reconsideration and Pt. is still not appropriate for [facility]. Notified Charge Nurse and Automotive Collision Repair Instructor. Will speak with Dr. Leone in the A.M.
--- NOTE | 2019-07-09 11:53 | NUR ---
AM GROUP PT ATTENDED MORNING GROUP THERAPY AND PARTICIPATED BY WORKING ON A TREE DRAWING. PT WAS VERY EMOTIONAL AND APOLOGIZED SEVERAL TIMES FOR CRYING. PT WAS ASSURRED THAT IT WAS FINE AND A GOOD WAY TO RELEASE PENT UP EMOTIONS.
--- NOTE | 2019-07-09 13:19 | NUR ---
Met with pt this AM. Pt stated that she is considering requesting to be discharged. Discussed this further. Offered to pt that there is not a discharge plan in place. Recommended to pt that she express her concerns to Dr Leone and allow this typewriter assembler and the funeral planner to continue to explore discharge options for pt. Pt stated that she would think about this.
--- NOTE | 2019-07-09 13:35 | NUR ---
PATIENT COMPLAINED OF RIGHT WRIST PAIN, RATING 7/10. PRN TYLENOL 650MG PO GIVEN PER REQUEST.
--- NOTE | 2019-07-09 15:36 | NUR ---
Shift chart check completed.
--- NOTE | 2019-07-09 15:42 | NUR ---
PM GROUP PT ATTENDED AFTERNOON GROUP THERAPY AND PARTICIPATED BY DRAWING AND SOCIALIZING WITH THIS HELIUM ARC WELDER. PT WAS IN GOOD SPIRITS AND EXHIBITED NO ANXIETY NOR EXPRESSED ANY SUICIDAL IDEATIONS
--- NOTE | 2019-07-09 18:29 | NUR ---
PATIENT COMPAINING OF BEING ANXIOUS AND HAVING DRY EYES. PRN VISTARIL 25MG PO AND NATURAL TEARS TO BOTH EYES PER REQUEST.
--- NOTE | 2019-07-09 18:30 | NUR ---
P: DEPRESSED MOOD, IRRITABLE AND TEARFUL AT TIMES. I: ONE ON ONE FOR PATIENT TO EXPRESS FEELING, ENCOURAGED TO PARTICIPATE IN GROUP SESSION. R: EFFECTIVE. PATIENT IS ALERT TO PERSON, PLACE TIME AND SITUATION; ABLE TO VOICE NEEDS. MOOD IS DEPRESSED, IRRITABLE, FEARFUL AND DEMANDING AT TIMES. DENIES ANY HALLUCINATIONS, DELUSIONS, HI/SI. MEDICATION WITH TYLENOL FOR RIGHT WRIST PAIN-EFFECTIVE. INDEPENDENT WITH ACTIVITIES OF DAILY LIVING BUT CAN BE SHORT WINDED AT TIMES. CONTINENT OF BOWEL AND BLADDER. SET UP FOR MEALS, INTAKES ARE GOOD WITH ADEQUATE FLUIDS. AMBULATORY WITH STEADY GAIT. PATIENT WEAR O2 3L AT 95%, NO SOB NOTED. INTERACTIVE WITH STAFF AND OTHER PATIENTS. PARTICIPATED IN GROUP SESSION. P: CONTINUE TO MOOD, VOICED THOUGHTS OF SI; PROVIDE ONE ON ONE AND ASSIST WITH DEVELOPING COPING SKILLS AND ENCOURAGE TO PRACTICE WITH FEELING STRESS, ANXIOUS OR BEING OVERWHELMED.
[2019-07-09 19:25] VITALS: BP 104/67
--- NOTE | 2019-07-09 21:57 | NUR ---
OH I AM TIRED. I CAN'T TALK RIGHT NOW BECAUSE I WON'T SLEEP IF I TALK ABOUT FEELINGS BUT I WILL CALL YOU IF I NEED ANYTHING. MONITOR FOR SAFETY Q 15MIN AND PRN. MAINTAIN NC 3L IN PLACE. MONITOR FOR CHANGES IN BEHAVIOR
--- NOTE | 2019-07-10 04:04 | NUR ---
24 HR chart check completed.
--- NOTE | 2019-07-10 06:02 | NUR ---
SLEPT WELL WITH MINIMAL INTERUPTION. ONE TIME FOR BREATHING TX. SLEPT [id number]
--- NOTE | 2019-07-10 07:15 | NUR ---
PHYSICAL THERAPY Patient seen this am for therapy visit and was sitting up on EOB upon therapist arrival. OT certified surgical tech/first assistant was present for observation only as patient identified by name / this morning. Patient reports feeling global joint stiffness, stating she has a history of Arthritis and presented with continuos O2-3L via NC. Patient transfers all with Supervision and ambulates without AD, ad myke in hallway to activity room, > 150'x 1, demonstrating slow alejandra and only minimal unsteady gait pattern, SBA x 1. Patient had just received her breathing treatment and remained WFL's with SpO2. Patient remained in activity room chair at table under [facility] staff Supervision. Will continue per POC as tolerated, total treatment time 14 minutes. Jacob Granado, WAGON WASHER
--- NOTE | 2019-07-10 07:27 | NUR ---
OT NOTE Pt was seen this A.M. 1:1 for 27 minute OT session with CHEMICAL OPERATIONS AND TRAINING and nursing staff present for observation only. Upon arrival pt was sitting upright on the EOB. Pt identified by name and and had complaints of increased fatigue. Pt presented to therapy with continuous 3L-O2 via NC which she remained on throughout the entire session. Pt completed sit to stand from bed level with SBA. Pt then completed functional mobility around the room with supervision while gathering supplies needed for ADL task. Pt then transferred on/off standard commode with supervision. Pt doffed and donned pants and shirt with supervision while sitting on commode. Pt then stood sink side while washing her face, hands, and completing hair care with supervision. Pt required seated rest breaks throughout due to fatigue and complaints of feeling SOB. Pt was left sitting upright in the dining room under [facility] staff supervision. Continue with rec D/C plan to SNF. LATOSHA Nix
--- NOTE | 2019-07-10 07:50 | NUR ---
PT SITTING IN DINING ROOM WITH PEERS, EATING BREAKFAST. NO S/S OF DISTRESS NOTED. RESPS EVEN AND UNLABORED ON 3L O2 NC.
[2019-07-10 08:00] VITALS: BP 130/71
--- NOTE | 2019-07-10 10:50 | NUR ---
DR. RIVERA ON UNIT TO ASSESS PATIENT.
--- NOTE | 2019-07-10 11:04 | NUR ---
PATIENT C/O BILATERAL WRIST PAIN, "IT MUST BE MY CARPAL TUNNEL". RATES PAIN 6 OUT OF 10, DESCRIBING ACHING. PT REQUESTING AND RECEIVED AT THIS TIME PRN PO TYLENOL PER PRN ORDER. WILL CONTINUE TO MONITOR FOR EFFECTIVENESS.
--- NOTE | 2019-07-10 11:35 | NUR ---
DR. OCHOA NOTIFIED FOR PODIATRY CONSULT FOR NAIL CARE.
--- NOTE | 2019-07-10 11:38 | NUR ---
P- TEARFUL AT TIMES. I- ASSESS MOOD, ORIENTATION, SI/HI, HALLUCINATIONS, DELUSIONS OR PAIN. PROVIDE WITH MEDICATIONS ON TIME WITH EDUCATION ON EACH. 1:1 THERAPEUTIC INTERACTION WITH EMOTIONAL SUPPORT AND VENTILATION OF FEELINGS. PROVIDE WITH RELAXATION AND COPING SKILLS. ENCOURAGE TO ATTEND/PARTICIPATE IN GROUP THERAPIES FOR EMOTIONAL SUPPORT AND SOCIALIZATION. R- ALERT AND ORIENTED X4. WHEN ASSESSING MOOD, PT STATED "I HAVENT FELT THIS GOOD IN A LONG TIME. I AM REALLY HAVING A GOOD DAY". PT BECAME TEARFUL WHEN EXPRESSING MISSING PATIENTS THAT HAVE BEEN DISCHARGED. PT STATED "I JUST AM GOING TO MISS THEM. I REALLY ENJOYED TALKING TO THEM AND I WISH THEY WERE STILL HERE". 1:1 THERPEUTIC INTERACTION AND RELAXATION/COPING SKILLS EFFECTIVE. PT UTILIZING APPROPRIATELY. DENIES SI/HI, HALLUCINATIONS. PT C/O BILATERAL WRIST PAIN, SEE EMAR FOR FURTHER DETAIL. NO S/S OF INTERACTING WITH INTERNAL STIMULI. NO S/S OF DELUSIONAL THOUGHT PROCESS NOTED. NO S/S OF DISTRESS NOTED. RESPS EVEN AND UNLABORED ON 02 3L NC. GAIT STEADY WHILE AMBULATING. PT SHOWERED. MAKES NEEDS KNOWN. MEDICATION COMPLIANT. ATTENDING AND PARTICIPATING IN GROUP THERAPIES. INTERACTIVE WITH PEERS AND STAFF. EATING AND DRINKING ADEQUATELY. P- ASSESS MOOD, ORIENTATION, SI/HI, HALLUCINATIONS, DELUSIONS OR PAIN. 1:1 THERAPEUTIC INTERACTION WITH EMOTIONAL SUPPORT AND VENTILATION OF FEELINGS PROVIDED WHEN NECSSARY. ENCOURAGE TO UTILIZE RELAXATION AND COPING SKILLS. PROVIDE WITH MEDS ON TIME WITH EDUCATION ON EACH. ENCOURAGE TO KEEP GOING TO GROUP THERAPIES. Q15 MINUTE CHECKS MAINTAINED FOR SAFETY.
--- NOTE | 2019-07-10 11:57 | NUR ---
AM GROUP PT ATTENDED MORNING GROUP THERAPY AND PARTICIPATED BY PLAYING CARDS WITH NURSING STUDENTS. PT EXPRESSED NO SUICIDAL IDEATIONS OR ANXIETY WHILE IN GROUP
--- NOTE | 2019-07-10 12:04 | NUR ---
PT STATES THAT PRN TYLENOL IS EFFECTIVE. NO FURTHER COMPLAINTS AT THIS TIME.
--- NOTE | 2019-07-10 14:21 | NUR ---
DR. NAJERA NOTIFIED OF PATIENT BEING DISCHARGED [place] AND TO INFORM DR. RIVERA OF DISCHARGE. PATIENT WITLL NEED SCRIPT FOR PO/OT/NURSE AND HOME HEALTH AIDE.
--- NOTE | 2019-07-10 15:23 | NUR ---
Pt. has requested discharge Tommorow. Pt. will be staying with her Aunt in [facility]. Has requested Home Health.
--- NOTE | 2019-07-10 15:41 | NUR ---
PM GROUP PT ATTENDED AFTERNOON GROUP THERAPY AND PARTICIPATED BY DRAWING AND LISTENING TO MUSIC. PT WAS ENGAGED IN HER DRAWING AND EXPRESSED NO ANXIETY OR SUICIDAL IDEATIONS
--- NOTE | 2019-07-10 16:59 | NUR ---
OCCUPATIONAL THERAPY CO-SIGN I approve of the Occupational Therapy notes written above. FATOUMATA APODACA OTR/Dianne
--- NOTE | 2019-07-10 17:10 | NUR ---
Shift chart check completed.
--- NOTE | 2019-07-10 18:20 | NUR ---
PATIENT COMPLAINING OF FEELING INCREASE ANXIETY AFTER TALKING ON THE PHONE WITH A FAMILY MEMBER. REQUESTING FOR SOMETHING FOR HER NERVES. PATIENT COMPLAINING OF BILATERAL WRIST PAIN, 04/09. PRN TYLENOL 650MG AND VISTARIL 25MG PO GIVEN AT THIS TIME. ENCOURAGED PATIENT TO UTILIZING COPING SKILLS.
[2019-07-10 19:36] VITALS: BP 115/68
--- NOTE | 2019-07-10 23:31 | NUR ---
P-ISOLATIVE. PATIENT ALERT AND ORIENTED. PATIENT DENIES SUICIDAL OR HOMICIDAL IDEATIONS AT THIS TIME. PATIENT WITH NO HALLUCINATIONS OR DELUSIONS. PATIENT WITH NO RESPIRATORY DISTRESS. PATIENT CONTINUES ON O2 AT 3L CONTINUOUS VIA NASAL CANNULA WITHOUT DIFFICULTY. I-REDIRECTION WITH 1:1 THERAPEUTIC INTERVENTIONS. EDUCATE AND ENCOURAGE MEDICATION COMPLIANCE. R- PATIENT SHORT OF BREATH ON EXERTION INTERMITTENTLY THROUGHOUT SHIFT. PATIENT AMBULATING WITH STEADY GAIT. PATIENT INTERACTING WITH PEERS IN DINING AREA. PATIENT MEDICATION COMPLIANT. PATIENT ISOLATED IN ROOM THROUGHOUT SHIFT. P-CONTINUE TO ENCOURAGE MEDICATION COMPLIANCE, ENCOURAGE GROUP THERAPY WHILE AWAKE
--- NOTE | 2019-07-11 05:56 | NUR ---
PATIENT SLEPT 7 HOURS OF UNINTERRUPTED SLEEP THROUGHOUT SHIFT. Q 15 MINUTE CHECKS MAINTAINED. 24 HR chart check completed.
[2019-07-11 07:38] VITALS: BP 144/84
--- NOTE | 2019-07-11 08:00 | NUR ---
Treatment Plan meeting with Dr. Leone, RN, AT, SW and Audit Consultant. Plan for discharge today. Pt. is going to temporarily live with her Aunt. Referral to [facility], Appointments scheduled.
[2019-07-11] MEDS ORDERED: MIRTAZAPINE15 M2 PO (08:42)
[2019-07-11] MEDS ORDERED: LORAZEPAM0.5 MG PO (08:42)
[2019-07-11] MEDS ORDERED: HYDROXYZINE PAM25 M1 PO (08:42)
[2019-07-11] MEDS ORDERED: ROPINIROLE HYD0.5 MG PO (08:42)
--- NOTE | 2019-07-11 09:34 | NUR ---
PT REQUESTED EYE DROPS THIS AM, DUE TO DRY EYES, ALSO REQUESTED TYLENOL FOR GENERAL DISCOMFORT. PT INTERACTIVE AND PLEASANT THIS AM, AWARENESS OF MEDICATIONS AND MEDICAL NEEDS. PT STATED THAT SHE IS READY TO GO HOME OR AT LEAST GET OUT OF HERE. PT DOES DISPLAY SOB WITH MOVEMENTS AND WHEN INCREASED ANXIETY, BREATHING TECHNICS USED FREQUENTLY. PT LAUGHING WITH PEERS, SMILED WHEN TALKING WITH THIS NURSE. CONTINUE TO MONITOR 15 MIN CHECKS , NO SI/HI OR DELUSIONS NOTED.
[2019-07-11] MEDS ORDERED: PROAIR HFA8.5 GM INH (10:11)
--- NOTE | 2019-07-11 11:30 | NUR ---
Individual time spent with pt this AM. Pt shared that she is feeling nervous about her discharge. Empathized with pt and discussed this further. Pt spoke of her plans to live with her aunt for awhile until she decides her long-term housing. Discussed various options for pt's long-term housing. Pt confirmed that she is not going to make any major decisions immediately. Pt spoke of her Jg and reminisced about their time together. Pt was tearful as she shared but was also able to laugh and smile about particular memories. Discussed pt's journey through her grief. Pt also shared about her personal strengths and reminisced about her years of employment. Discussed the services in place for pt's discharge. Pt was pleasant and cooperative throughout conversation. Pt is in the process of adjusting to her life without her and continues to grieve the recent loss of him. However, pt is future- oriented as she voices that she wants to get stronger and decide where she will be living long-term. Pt denies suicidal ideations but does admit to anxiety about her discharge.
--- NOTE | 2019-07-11 11:40 | NUR ---
Patient is discharging today to her aunt's home. Follow-ups were scheduled at [facility] for psychiatry and with Honey Felix PhD at [facility] for counseling. [facility] will also provide home services for pt. While at [facility], pt's mood improved. Her anxiety also lessened. Pt participated in programming. Pt denies SI. She is future-oriented and motivated to continue treatment on outpatient basis.
--- NOTE | 2019-07-11 14:32 | NUR ---
SPOKE WITH PT ABOUT FENCE ERECTOR TIME NEEDING TO BE CHANGED DUE TO RELATIVE STATED HE WOULD PICK HER UP AROUND 3-330P
--- NOTE | 2019-07-11 14:46 | NUR ---
Discharge Paperwork and Orders faxed to [facility].
--- NOTE | 2019-07-11 15:10 | NUR ---
PT DISCHARGED OFF UNIT AT THIS TIME. ALL BELONGINGS AND PAPER WORK REVIEWED WITH PT. PT LAUGHING AND SMILING
--- NOTE | 2019-07-11 16:29 | NUR ---
PHYSICAL THERAPY CO-SIGN I approve of the Physical Therapy notes written above. FRANCO WHITFIELD PT,DPT
== END 2019-07-11 15:10 | disposition home health service (06) | DRG 885 ==
LOC: 3N 14:58
PROVIDERS: ADMIT Psychiatry & Neurology Psychiatry
PROC: 0HBRXZZ Excision of Toe Nail, External Approach (ICD-10-PCS; principal; 2019-07-11)
DX: F33.2 Major depressive disorder, recurrent severe without psychotic features (principal); J18.9 Pneumonia, unspecified organism; F03.91 Unspecified dementia, unspecified severity, with behavioral disturbance; J96.11 Chronic respiratory failure with hypoxia; J44.1 Chronic obstructive pulmonary disease with (acute) exacerbation; E44.0 Moderate protein-calorie malnutrition; J44.0 Chronic obstructive pulmonary disease with (acute) lower respiratory infection; Z68.1 Body mass index [BMI] 19.9 or less, adult; F41.0 Panic disorder [episodic paroxysmal anxiety]; B35.1 Tinea unguium; F10.10 Alcohol abuse, uncomplicated; F41.1 Generalized anxiety disorder; E78.2 Mixed hyperlipidemia; R73.03 Prediabetes; F17.200 Nicotine dependence, unspecified, uncomplicated; K21.9 Gastro-esophageal reflux disease without esophagitis; I10 Essential (primary) hypertension; F34.1 Dysthymic disorder; Z82.49 Family history of ischemic heart disease and other diseases of the circulatory system; Z83.3 Family history of diabetes mellitus; Z83.6 Family history of other diseases of the respiratory system; Z88.8 Allergy status to other drugs, medicaments and biological substances; Z79.82 Long term (current) use of aspirin; Z71.6 Tobacco abuse counseling

== ENCOUNTER → 2020-09-06 | Outpatient (CLI) | payer MEDICARE, OTHER ==
[~2020-09-06] MED LIST changes: +HYDROXYZINE PAM25 M1 PO; +MIRTAZAPINE15 M2 PO; +ROPINIROLE HYD0.5 MG PO
== END | disposition home or self-care (01) ==
LOC: COVID19 16:07
PROVIDERS: ATTEND Internal Medicine
DX: Z20.828 Contact with and (suspected) exposure to other viral communicable diseases (principal)

== ENCOUNTER 2023-07-04 22:25 | Inpatient (IN) | payer OTHER ==
[~2023-07-04] VITALS: Ht 167.6 cm; Wt 61.0 kg
[2023-07-04 22:25] VITALS: BP 166/105
[2023-07-04 23:05] VITALS: BP 158/96
[2023-07-04 23:38] LABS: HEMATOCRIT 45.7 % (37.0-47.0); MEAN CELL VOLUME 87.7 fl (81.0-99.0); MEAN CORPUSCULAR HGB CONC 31.9 g/dl (33.0-37.0); MEAN PLATELET VOLUME 9.4 fl (9.6-12.3); PLATELET COUNT AUTOMATED 429 10*3/uL (130-400); RED BLOOD COUNT 5.21 10*6/uL (4.10-5.10); RED CELL DISTRI WIDTH 13.8 % (0-14.5); WHITE BLOOD COUNT 14.9 10*3/uL (4.8-10.8)
[2023-07-04 23:43] LABS: MANUAL DIFF REFLEX YES
[2023-07-05] VITALS (7 sets, daily range): BP systolic 142–167; BP diastolic 76–98
[2023-07-05 00:02] LABS: ALKALINE PHOSPHATASE 93 U/L (46-116); BUN 24 mg/dl (9-23); CHLORIDE 95 mmol/L (98-107); LIPASE 27 U/L (12-53); POTASSIUM 4.3 mmol/L (3.4-5.1); SGPT/ALT 20 U/L (10-49); TOTAL PROTEIN 6.9 gm/dL (6.0-8.0)
[2023-07-05 00:08] LABS: PLATELET SUFFICIENCY NORMAL (NORMAL); TOTAL CELLS COUNTED 100 #CELLS
[2023-07-05 00:50] LABS: ACT PARTIAL THROMBO TIME 26.3 SECONDS (20.0-32.1); INTERNATIONAL NORM RATIO 1.1 (2.0-3.5)
[2023-07-05] MEDS ORDERED: Lopressor25 MG PO (01:17)
[2023-07-05] MEDS ORDERED: LISINOPRIL40 MG PO (01:18)
[2023-07-05] MEDS ORDERED: PROVENTIL HFA6.7 GM INH (01:19)
[2023-07-05] MEDS ORDERED: SPIRIVA RESPIMAT4 GM INH (01:20)
[2023-07-05] MEDS ORDERED: SERTRALINE HYDR50 MG PO (01:21)
[2023-07-05] MEDS ORDERED: MIRTAZAPINE30 M2 PO (01:22)
[2023-07-05] MEDS ORDERED: ROPINIROLE HYD0.5 MG PO (01:22)
[2023-07-05] MEDS ORDERED: DALI500T PO (01:22)
[2023-07-05] MEDS ORDERED: ATORVASTATIN CA10 M1 PO (01:23)
[2023-07-05] MEDS ORDERED: BUDESONIDE-FO10.2 GM INH (01:23)
[2023-07-05] MEDS ORDERED: LORAZEPAM0.5 M1 PO (01:24)
[2023-07-06 08:00] VITALS: BP 184/110
== END 2023-07-06 17:14 | disposition hospice, inpatient (51) | DRG 871 ==
LOC: ED 22:25 → EDHOLD 07-05 00:18 → 4E 07-05 00:18
PROVIDERS: Internal Medicine; ADMIT Student in an Organized Health Care Education/Training Program; ATTEND Student in an Organized Health Care Education/Training Program
DX: A41.9 Sepsis, unspecified organism (principal); J18.9 Pneumonia, unspecified organism; J96.01 Acute respiratory failure with hypoxia; J44.1 Chronic obstructive pulmonary disease with (acute) exacerbation; F33.9 Major depressive disorder, recurrent, unspecified; J44.0 Chronic obstructive pulmonary disease with (acute) lower respiratory infection; I10 Essential (primary) hypertension; E78.5 Hyperlipidemia, unspecified; F41.9 Anxiety disorder, unspecified; K21.9 Gastro-esophageal reflux disease without esophagitis; D72.825 Bandemia; D75.839 Thrombocytosis, unspecified; Z66 Do not resuscitate; R65.20 Severe sepsis without septic shock; Z51.5 Encounter for palliative care; Z88.6 Allergy status to analgesic agent; Z83.3 Family history of diabetes mellitus; Z82.49 Family history of ischemic heart disease and other diseases of the circulatory system; Z83.6 Family history of other diseases of the respiratory system